=== PATIENT | male | born 1960 | race African-American/Black ===

== ENCOUNTER 2017-04-28 09:39 | Emergency (ER) | payer MEDICAID ==
--- NOTE | 2017-04-28 10:58 | ER Document Report ---
ED General - General Chief Complaint: Cough Stated Complaint: COUGH Time Seen by Provider: 04/28/17 10:53 TRAVEL OUTSIDE OF THE [place] IN LAST 30 DAYS: No - HPI Patient complains to provider of: cough, weakness, fever Notes: Normally healthy man presents with about 3 day history of weakness, fatigue, myalgias and cough. Patient concerned he may have the flu or pneumonia. - Related Data Allergies/Adverse Reactions: No Known Allergies Allergy (Verified 09/18/12 10:48) Past Medical History - Social History Smoking Status: Unknown if Ever Smoked Family History: Reviewed & Not Pertinent - Past Medical History Cardiac Medical History: Denies: Hx Coronary Artery Disease, Hx Heart Attack, Hx Hypertension Pulmonary Medical History: Denies: Hx Asthma, Hx Bronchitis, Hx COPD, Hx Pneumonia Neurological Medical History: Denies: Hx Cerebrovascular Accident, Hx Seizures Musculoskeltal Medical History: Denies Hx Arthritis - Immunizations Hx Diphtheria, Pertussis, Tetanus Vaccination: Yes Review of Systems - Review of Systems Constitutional: Fever, Malaise, Weakness EENT: No symptoms reported Cardiovascular: No symptoms reported Respiratory: Cough Gastrointestinal: No symptoms reported Genitourinary: No symptoms reported Male Genitourinary: No symptoms reported Musculoskeletal: No symptoms reported Skin: No symptoms reported Hematologic/Lymphatic: No symptoms reported Neurological/Psychological: No symptoms reported Physical Exam - Vital signs Vitals: Temp Pulse Resp BP Pulse Ox 98.9 F 59 L 16 121/69 96 04/28/17 09:46 04/28/17 09:46 04/28/17 09:46 04/28/17 09:46 04/28/17 09:46 Interpretation: Normal - General General appearance: Appears well, Alert - HEENT Head: Normocephalic, Atraumatic Eyes: Normal Pupils: PERRL - Respiratory Respiratory status: No respiratory distress Chest status: Nontender Breath sounds: Normal Chest palpation: Normal - Cardiovascular Rhythm: Regular Heart sounds: Normal auscultation Murmur: No - Abdominal Inspection: Normal Distension: No distension Bowel sounds: Normal Tenderness: Nontender Organomegaly: No organomegaly - Back Back: Normal, Nontender - Extremities General upper extremity: Normal inspection, Nontender, Normal color, Normal ROM , Normal temperature General lower extremity: Normal inspection, Nontender, Normal color, Normal ROM , Normal temperature, Normal weight bearing. No: Kelly's sign - Neurological Neuro grossly intact: Yes Cognition: Normal Orientation: AAOx4 Roxana Coma Scale Eye Opening: Spontaneous Nereyda Coma Scale Verbal: Oriented Roxana Coma Scale Motor: Obeys Commands Roxana Coma Scale Total: 15 Speech: Normal Motor strength normal: LUE, RUE, LLE, RLE Sensory: Normal - Psychological Associated symptoms: Normal affect, Normal mood - Skin Skin Temperature: Warm Skin Moisture: Dry Skin Color: Normal Course - Re-evaluation Re-evalutation: 04/28/17 10:57 Well-appearing man in no acute distress stable vital signs within normal limits outside treatment window for possible influenza. Will obtain chest x-ray to rule out pneumonia 04/28/17 11:28 Well-appearing man stable vital signs within normal limits presents with some myalgias and cough for about 3 days. Patient's imaging study shows no pneumonia. I suspicion patient is influenza. We will follow-up PCP. - Vital Signs Vital signs: Temp Pulse Resp BP Pulse Ox 98.9 F 59 L 16 121/69 96 04/28/17 09:46 04/28/17 09:46 04/28/17 09:46 04/28/17 09:46 04/28/17 09:46 Discharge - Discharge Clinical Impression: Influenza Condition: Stable Disposition: HOME, SELF-CARE Instructions: Influenza ([facility]) [id number] Additional Instructions: See your PCP
--- NOTE | 2017-04-28 11:14 | RADIOLOGY REPORT (SQ) ---
EXAM DESCRIPTION: CHEST PA/LAT COMPLETED DATE/TIME: 04/28/2017 11:07 am REASON FOR STUDY: cough COMPARISON: September 2012 EXAM PARAMETERS: NUMBER OF VIEWS: two views TECHNIQUE: Digital Frontal and Lateral radiographic views of the chest acquired. RADIATION DOSE: NA LIMITATIONS: none FINDINGS: LUNGS AND PLEURA: No opacities, masses or pneumothorax. No pleural effusion. MEDIASTINUM AND HILAR STRUCTURES: No masses or contour abnormalities. HEART AND VASCULAR STRUCTURES: Heart normal size. No evidence for failure. BONES: No acute findings. HARDWARE: None in the chest. OTHER: No other significant finding. IMPRESSION: NO SIGNIFICANT RADIOGRAPHIC FINDING IN THE CHEST. TECHNICAL DOCUMENTATION: JOB ID: [id number] [employer] All Rights Reserved
[2017-04-28 11:51] VITALS: BP 123/71
== END 2017-04-28 11:51 | disposition home or self-care (01) ==
LOC: ER 09:39
DX: J11.1 Influenza due to unidentified influenza virus with other respiratory manifestations (principal); R05 Cough; R53.1 Weakness; R50.9 Fever, unspecified; R53.83 Other fatigue; M79.1 Myalgia
CPT/HCPCS: 71046; 99283

== ENCOUNTER 2019-07-04 11:08 | Inpatient (IN) | payer MEDICAID ==
[2019-07-04] MEDS ORDERED: FUROSEMIDE INJ/PF 20 MG/2 ML SDV IV ONE (12:34)
[2019-07-04] MEDS ORDERED: ACETAMINOPHEN 325 MG TABLET PO ONE (12:38)
--- NOTE | 2019-07-04 12:39 | ER Document Report ---
ED General - General Chief Complaint: Shoulder Pain Stated Complaint: SHOULDER PAIN Time Seen by Provider: 07/04/19 11:50 Primary Care Provider: ALBERTO GILMAN MD [Primary Care Provider] - Follow up as needed Mode of Arrival: Ambulatory Information source: Patient Notes: 58-year-old man presents to the emergency department with a complaint of episodic shortness of breath with swelling of the ankles and feet bilaterally. He also notes that he has had a injury to his left shoulder many years ago and his shoulder has been giving him some pain. He denies any recent injury. He also has a pacemaker, denies acute chest pain. TRAVEL OUTSIDE OF THE [place] IN LAST 30 DAYS: No - Related Data Allergies/Adverse Reactions: No Known Allergies Allergy (Verified 09/18/12 10:48) Home Medications: pt is unable to recall medictions, but he states he "takes one med for my heart because I have a pacemaker". Past Medical History - Social History Smoking Status: Never Smoker Family History: Reviewed & Not Pertinent Patient has suicidal ideation: No Patient has homicidal ideation: No - Past Medical History Cardiac Medical History: Denies: Hx Coronary Artery Disease, Hx Heart Attack, Hx Hypertension Pulmonary Medical History: Denies: Hx Asthma, Hx Bronchitis, Hx COPD, Hx Pneumonia Neurological Medical History: Denies: Hx Cerebrovascular Accident, Hx Seizures Renal/ Medical History: Denies: Hx Peritoneal Dialysis Musculoskeletal Medical History: Denies Hx Arthritis - Immunizations Hx Diphtheria, Pertussis, Tetanus Vaccination: Yes Review of Systems - Review of Systems Notes: Constitutional: Negative for fever. HENT: Negative for sore throat. Eyes: Negative for visual changes. Cardiovascular: + Edema, negative for chest pain. Respiratory: + Dyspnea on exertion, shortness of breath, PND Gastrointestinal: Negative for abdominal pain, vomiting or diarrhea. Genitourinary: Negative for dysuria. Musculoskeletal: Negative for back pain. Skin: Negative for rash. Neurological: Negative for headaches, weakness or numbness. 10 point ROS negative except as marked above and in HPI. Physical Exam - Vital signs Vitals: Temp Pulse Resp BP Pulse Ox 97.7 F 72 18 140/75 H 99 07/04/19 11:15 07/04/19 11:15 07/04/19 11:15 07/04/19 11:15 07/04/19 11:15 - Notes Notes: PHYSICAL EXAMINATION: Physical Exam: General: Well-nourished well-developed 58-year-old man respiratory distress. HEENT: NC/AT, pupils equal round and reactive to light, MM moist,nares clear, oropharynx clear, airway patent + JVD Neck: supple, no adenopathy, no masses. Good range of motion Lungs: Tachypnea, no wheezing, no rales no rhonchi CVS: Regular rate and rhythm no murmur gallop or rub Abdomen: Soft, active, nontender, no masses, no hepatosplenomegaly Ext: 2+ pedal edema bilaterally Neuro: Alert and responsive, moving all 4 extremities on command, cranial nerves intact, no focal findings Skin: Intact no open lesions, no rash PSYCH: Normal mood, normal affect. Course - Re-evaluation Re-evalutation: 07/04/19 16:24 Patient denies chest pain, has had worsening dyspnea on exertion, increased swelling in the lower extremities over the past few days. He has a pacemaker, chest x-ray today reveals a market increase in his cardiac silhouette on x-ray compared to previous x-rays. Patient also noted to have JVD. BNP is 9030. He is given Lasix milligrams IV, aspirin 324 mg p.o., and Vasotec 0.625 mg IV. Blood pressure noted to have a diastolic of greater than 100. I discussed with the patient the need for further evaluation, echocardiogram and diuresis. I have contacted Dr. Gilman, he will admit the patient to the hospital [facility] for further evaluation and treatment. - Vital Signs Vital signs: Temp Pulse Resp BP Pulse Ox 97.7 F 72 18 134/103 H 100 07/04/19 11:15 07/04/19 11:15 07/04/19 14:43 07/04/19 14:43 07/04/19 14:43 - Laboratory Result Diagrams: 07/04/19 12:45 07/04/19 12:45 Laboratory results interpreted by me: 07/04/19 07/04/19 07/04/19 12:45 12:45 14:40 MCV 98 H RDW 15.2 H Plt Count 142 L Chloride 109 H Total Bilirubin 2.3 H NT-Pro-B Natriuret Pep Urine Protein 100 H Urine Blood SMALL H 07/04/19 15:00 MCV RDW Plt Count Chloride Total Bilirubin NT-Pro-B Natriuret Pep 9830 H Urine Protein Urine Blood Discharge - Discharge Clinical Impression: Dyspnea on exertion Congestive heart failure Qualifiers: Heart failure type: combined systolic and diastolic Heart failure chronicity: acute Qualified Code(s): I50.41 - Acute combined systolic (congestive) and diastolic (congestive) heart failure Cardiomyopathy Qualifiers: Cardiomyopathy type: unspecified Qualified Code(s): I42.9 - Cardiomyopathy, u nspecified Disposition: ADMITTED INPATIENT Admitting Provider: Hari Unit Admitted: IMCU Referrals: ALBERTO GILMAN MD [Primary Care Provider] - Follow up as needed
[2019-07-04 13:13] LABS: ABSOLUTE BASOPHILS # (AUTO) 0.1 10^3/uL (0.0-0.2); ABSOLUTE LYMPHOCYTES (AUTO) 1.6 10^3/uL (0.5-4.7); ABSOLUTE MONOCYTES (AUTO) 0.4 10^3/uL (0.1-1.4); ABSOLUTE NEUT (AUTO) 2.6 10^3/uL (1.7-8.2); BASOPHILS % (AUTO) 1.5 % (0-2); EOSINOPHILS % (AUTO) 0.5 % (0-6); HEMATOCRIT 45.9 % (37.9-51.0); HEMOGLOBIN 15.3 g/dL (13.5-17.0); LYMPHOCYTES % (AUTO) 34.6 % (13-45); MEAN CORPUSCULAR HEMOGLOBIN 32.7 pg (27.0-33.4); MEAN CORPUSCULAR HGB CONC 33.4 g/dL (32.0-36.0); MEAN CORPUSCULAR VOLUME 98 fl (80-97); MONOCYTES % (AUTO) 7.9 % (3-13); PLATELET COUNT 142 10^3/uL (150-450); RED BLOOD COUNT 4.69 10^6/uL (4.35-5.55); RED CELL DISTRIBUTION WIDTH 15.2 % (11.5-14.0); SEGMENTED NEUTROPHILS % (AUTO) 55.5 % (42-78); TOTAL CELLS COUNTED % (AUTO) 100 %; WHITE BLOOD COUNT 4.7 10^3/uL (4.0-10.5)
[2019-07-04 13:19] LABS: ALBUMIN 3.9 g/dL (3.5-5.0); ALKALINE PHOSPHATASE 84 U/L (38-126); ANION GAP 8 (5-19); ASPARTATE AMINO TRANSFERASE 42 U/L (17-59); BILIRUBIN,DIRECT 0.1 mg/dL (0.0-0.4); BILIRUBIN,TOTAL 2.3 mg/dL (0.2-1.3); BLOOD UREA NITROGEN 16 mg/dL (7-20); CALCIUM 9.6 mg/dL (8.4-10.2); CARBON DIOXIDE 24 mmol/L (22-30); CHLORIDE 109 mmol/L (98-107); CREATINE KINASE 138 U/L (55-170); GLUCOSE 99 mg/dL (75-110); POTASSIUM 4.3 mmol/L (3.6-5.0); TOTAL PROTEIN 6.9 g/dL (6.3-8.2)
--- NOTE | 2019-07-04 13:55 | RADIOLOGY REPORT (SQ) ---
EXAM DESCRIPTION: CHEST 2 VIEWS IMAGES COMPLETED DATE/TIME: 07/04/2019 1:34 pm REASON FOR STUDY: shortness of breath COMPARISON: 04/28/2017 EXAM PARAMETERS: NUMBER OF VIEWS: two views TECHNIQUE: Digital Frontal and Lateral radiographic views of the chest acquired. RADIATION DOSE: NA LIMITATIONS: none FINDINGS: LUNGS AND PLEURA: Very small right pleural effusion and slight right lung base atelectasi s. The left lung is stable in appearance. No pneumothorax. MEDIASTINUM AND HILAR STRUCTURES: No masses or contour abnormalities. HEART AND VASCULAR STRUCTURES: Marked generalized cardiomegaly, new finding since the prior study. No evidence for failure. BONES: The osseous structures are stable in appearance. No acute findings. HARDWARE: Interval placement of left-sided cardiac pacemaker/defibrillator. OTHER: No other significant finding. IMPRESSION: 1. Since the prior study dated 04/28/2017, marked increase in heart size. Marked cardio megaly. Further evaluation with ECHO may be helpful. 2. Very small right pleural effusion and slight atelectasis at the right lung base. TECHNICAL DOCUMENTATION: JOB ID: [id number] [employer]- All Rights Reserved Reading location - IP/workstation name: [email or web address]
[2019-07-04 15:05] LABS: APPEARANCE,URINE CLEAR; BILIRUBIN,URINE NEGATIVE (NEGATIVE); COLOR,URINE YELLOW; GLUCOSE, URINE NEGATIVE (NEGATIVE); KETONES,URINE NEGATIVE (NEGATIVE); PROTEIN,URINE 100 mg/dL (NEGATIVE); URINE SPECIFIC GRAVITY 1.013; UROBILINOGEN,URINE NEGATIVE mg/dL (<2.0)
[2019-07-04 15:41] LABS: CREATINE KINASE MB 3.09 ng/mL (<4.55)
[2019-07-04 15:48] LABS: TROPONIN I 0.038 ng/mL
[2019-07-04] MEDS ORDERED: ENALAPRILAT DIHYDRATE INJ/PF 1.25 MG/1 ML SDV IV ONE (16:17)
[2019-07-04] MEDS ORDERED: ASPIRIN 81 MG TABLET, CHEWABLE PO ONE (16:17)
[2019-07-04] MEDS: ENOXAPARIN SODIUM INJ 40 MG/0.4 ML DISP.SYRIN SUBCUT SCH (17:57)
[2019-07-04] MEDS: CARVEDILOL 3.125 MG TABLET PO SCH (18:05)
[2019-07-04 18:13] LABS: INTERNATIONAL RATION (INR) 1.13; PARTIAL THROMBOPLASTIN TIME 30.7 SEC (23.5-35.8); PROTHROMBIN TIME 14.6 SEC (11.4-15.4)
[2019-07-04 18:17] LABS: ARTERIAL BLOOD FIO2 2L; ARTERIAL BLOOD H2CO3 0.95 mmol/L (1.05-1.35); ARTERIAL BLOOD O2 SATURATION 98.7 % (94-98); ARTERIAL BLOOD PCO2 31.7 mmHg (35-45); ARTERIAL BLOOD PH 7.44 (7.35-7.45); ARTERIAL BLOOD PO2 128.5 mmHg (80-100)
[2019-07-04] MEDS ORDERED: NORMAL SALINE 250 ML with FUROSEMIDE 250 MG IV PRN ×2 (18:30)
[2019-07-04 18:34] LABS: CREATINE KINASE MB 3.2 ng/mL (<4.55)
[2019-07-04 18:38] LABS: FREE T4 (FREE THYROXINE) 2.14 ng/dL (0.78-2.19); TROPONIN I 0.036 ng/mL
--- NOTE | 2019-07-04 18:46 | EKG REPORT ---
SEVERITY:- ABNORMAL ECG - VENTRICULAR-PACED COMPLEXES : Confirmed by: Quin Lira 04-Jul-2019 18:45:54
[2019-07-04 18:52] LABS: THYROID STIMULATING HORMONE 2.64 uIU/mL (0.47-4.68)
[2019-07-05 00:07] LABS: CREATINE KINASE MB 3.77 ng/mL (<4.55); TROPONIN I 0.038 ng/mL
[2019-07-05] MEDS: CARVEDILOL 3.125 MG TABLET PO SCH ×2 (05:13→17:29)
[2019-07-05 05:41] LABS: HEMOGLOBIN 15.4 g/dL (13.5-17.0); MEAN CORPUSCULAR HEMOGLOBIN 33.1 pg (27.0-33.4); MEAN CORPUSCULAR HGB CONC 34.2 g/dL (32.0-36.0); MEAN CORPUSCULAR VOLUME 97 fl (80-97); PLATELET COUNT 133 10^3/uL (150-450); RED BLOOD COUNT 4.66 10^6/uL (4.35-5.55); RED CELL DISTRIBUTION WIDTH 14.7 % (11.5-14.0); WHITE BLOOD COUNT 4.4 10^3/uL (4.0-10.5)
[2019-07-05 06:03] LABS: ABSOLUTE LYMPHOCYTES# (MANUAL) 1.5 10^3/uL (0.5-4.7); ABSOLUTE MONOCYTES # (MANUAL) 0.3 10^3/uL (0.1-1.4); ALBUMIN 3.6 g/dL (3.5-5.0); ALKALINE PHOSPHATASE 81 U/L (38-126); ANION GAP 8 (5-19); ASPARTATE AMINO TRANSFERASE 41 U/L (17-59); BASOPHILS % (MANUAL) 0 % (0-2); BILIRUBIN,DIRECT 0.2 mg/dL (0.0-0.4); BILIRUBIN,TOTAL 2.4 mg/dL (0.2-1.3); BLOOD UREA NITROGEN 17 mg/dL (7-20); CALCIUM 9.4 mg/dL (8.4-10.2); CARBON DIOXIDE 27 mmol/L (22-30); CHLORIDE 103 mmol/L (98-107); CHOLESTEROL 202.12 mg/dL (0-200); CREATINE KINASE 135 U/L (55-170); EOSINOPHILS % (MANUAL) 2 % (0-6); GLUCOSE 88 mg/dL (75-110); LYMPHOCYTES % (MANUAL) 34 % (13-45); MONOCYTES % (MANUAL) 7 % (3-13); NUCLEATED RED BLOOD CELLS 1 /100 WBC (0); POTASSIUM 3.7 mmol/L (3.6-5.0); SEGMENTED NEUTROPHILS % (MAN) 57 % (42-78); TOTAL CELLS COUNTED 100; TOTAL PROTEIN 6.5 g/dL (6.3-8.2); TRIGLYCERIDES 100 mg/dL (<150)
[2019-07-05 06:04] LABS: ANISOCYTOSIS SLIGHT; BURR CELLS 1+; PLATELET COMMENT DECREASED; POIKILOCYTOSIS 1+; TEAR DROP CELLS SLIGHT
[2019-07-05 06:15] LABS: DIRECT LDL 145 mg/dL (<100)
[2019-07-05 06:21] LABS: CREATINE KINASE MB 3.89 ng/mL (<4.55); TROPONIN I 0.041 ng/mL
[2019-07-05] MEDS: ENOXAPARIN SODIUM INJ 40 MG/0.4 ML DISP.SYRIN SUBCUT SCH (09:46)
--- NOTE | 2019-07-05 10:02 | EKG REPORT ---
SEVERITY:- ABNORMAL ECG - A-V DUAL-PACED RHYTHM WITH SOME INHIBITION : Confirmed by: Quin Lira 05-Jul-2019 10:02:15
--- NOTE | 2019-07-05 19:36 | PDOC H&P ---
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 He was evaluated in the ER and found to be in CHF. Chest x- ray ,the BNP clinical picture consistent with CHF, hospital admission was advised. Past Medical History Cardiac Medical History: Reports: Other - Nonischemic cardiomyopathy Neurological Medical History: Denies: Seizures Musculoskeltal Medical History: Denies: Arthritis Hematology: Denies: Anemia Social History Smoking Status: Never Smoker Electronic Cigarette use?: No Frequency of Alcohol Use: None Hx Recreational Drug Use: No Drugs: None Hx Prescription Drug Abuse: No Family History Family History: Reviewed & Not Pertinent Parental Family History Reviewed: Yes Children Family History Reviewed: Yes Sibling(s) Family History Reviewed.: Yes Medication/Allergy Home Medications: Carvedilol [Coreg 3.125 mg Tablet] 3.125 mg PO Q12 07/04/19 Lisinopril [Prinivil 5 mg Tablet] 5 mg PO DAILY 07/04/19 Allergies/Adverse Reactions: No Known Allergies Allergy (Verified 09/18/12 10:48) Review of Systems Constitutional: ABSENT: chills, fever(s), headache(s), weight gain, weight loss Eyes: ABSENT: visual disturbances Ears: ABSENT: hearing changes Cardiovascular: PRESENT: dyspnea on exertion, edema Respiratory: ABSENT: cough, hemoptysis Gastrointestinal: ABSENT: abdominal pain, constipation, diarrhea, hematemesis, hematochezia, nausea, vomiting Genitourinary: ABSENT: dysuria, hematuria Musculoskeletal: ABSENT: joint swelling Integumentary: ABSENT: rash, wounds Neurological: ABSENT: abnormal gait, abnormal speech, confusion, dizziness, focal weakness, syncope Psychiatric: ABSENT: anxiety, depression, homidical ideation, suicidal ideation Endocrine: ABSENT: cold intolerance, heat intolerance, menstrual abnormalities, polydipsia, polyuria Hematologic/Lymphatic: ABSENT: easy bleeding, easy bruising, lymphadenopathy Physical Exam Vital Signs: Temp Pulse Resp BP Pulse Ox 97.3 F 59 L 18 116/83 100 07/05/19 16:31 07/05/19 16:31 07/05/19 16:31 07/05/19 16:31 07/05/19 16:31 Intake & Output 07/04/19 07/05/19 07/06/19 06:59 06:59 06:59 Intake Total 136 720 Output Total 1350 350 Balance -1214 370 Weight 60.5 kg General appearance: PRESENT: mild distress Head exam: PRESENT: atraumatic, normocephalic Eye exam: PRESENT: conjunctiva pink, EOMI, PERRLA Ear exam: PRESENT: normal external ear exam Mouth exam: PRESENT: moist, tongue midline Neck exam: PRESENT: full ROM. ABSENT: carotid bruit, JVD, lymphadenopathy, thyromegaly Respiratory exam: PRESENT: crackles, rales Cardiovascular exam: PRESENT: RRR, +S1, +S2 Vascular exam: PRESENT: normal capillary refill GI/Abdominal exam: PRESENT: normal bowel sounds, soft Rectal exam: PRESENT: deferred Extremities exam: PRESENT: pedal edema Neurological exam: PRESENT: alert, awake, oriented to person, oriented to place, oriented to time, oriented to situation, CN II-XII grossly intact Psychiatric exam: PRESENT: appropriate affect, normal mood Skin exam: PRESENT: dry, intact, warm Results Laboratory Results: 07/05/19 05:22 07/05/19 05:22 07/05/19 07/05/19 05:22 05:22 WBC 4.4 RBC 4.66 Hgb 15.4 Hct 45.0 MCV 97 MCH 33.1 MCHC 34.2 RDW 14.7 H Plt Count 133 L Seg Neutrophils % Not Reportable Sodium 137.9 Potassium 3.7 Chloride 103 Carbon Dioxide 27 Anion Gap 8 BUN 17 Creatinine 0.81 Est GFR ( Amer) > 60 Glucose 88 Calcium 9.4 Total Bilirubin 2.4 H AST 41 Alkaline Phosphatase 81 Total Protein 6.5 Albumin 3.6 Triglycerides 100 Cholesterol 202.12 H LDL Cholesterol Direct 145 H VLDL Cholesterol 20.0 HDL Cholesterol 48 07/04/19 07/04/19 07/04/19 12:45 12:45 15:00 Creatine Kinase 138 CK-MB (CK-2) Cancelled 3.09 Troponin I Cancelled 0.038 NT-Pro-B Natriuret Pep Cancelled 9830 H 07/04/19 07/04/19 07/04/19 17:45 17:45 23:28 Creatine Kinase 143 160 CK-MB (CK-2) 3.20 Troponin I 0.036 NT-Pro-B Natriuret Pep 07/04/19 07/05/19 07/05/19 23:28 05:22 05:22 Creatine Kinase 135 CK-MB (CK-2) 3.77 3.89 Troponin I 0.038 0.041 NT-Pro-B Natriuret Pep Impressions: Chest X-Ray 07/04/19 12:31 IMPRESSION: 1. Since the prior study dated 04/28/2017, marked increase in heart size. Marked cardiomegaly. Further evaluation with ECHO may be helpful. 2. Very small right pleural effusion and slight atelectasis at the right lung base. Assessment & Plan - Diagnosis (1) Acute systolic heart failure Is this a current diagnosis for this admission?: Yes Plan: Patient is admitted, start furosemide infusion, Entresto, continue beta-geraldine, order 2D echo (2) Presence of cardiac pacemaker Is this a current diagnosis for this admission?: Yes (3) Ischemic cardiomyopathy Is this a current diagnosis for this admission?: Yes
--- NOTE | 2019-07-05 19:40 | PDOC PROGRESS REPORT ---
Subjective Progress Note for:: 07/05/19 Subjective:: Patient was admitted yesterday for the management of acute systolic heart failure, 2D echo was done today. Patient is very diuresed Reason For Visit: ACUTE SYSTOLIC HEART FAILURE,H/O NON-ISCHEMIC CARD Physical Exam Vital Signs: Temp Pulse Resp BP Pulse Ox 97.3 F 59 L 18 116/83 100 07/05/19 16:31 07/05/19 16:31 07/05/19 16:31 07/05/19 16:31 07/05/19 16:31 Intake & Output 07/04/19 07/05/19 07/06/19 06:59 06:59 06:59 Intake Total 136 720 Output Total 1350 350 Balance -1214 370 Weight 60.5 kg General appearance: PRESENT: no acute distress Eye exam: PRESENT: PERRLA Respiratory exam: PRESENT: clear to auscultation brady Cardiovascular exam: PRESENT: +S1, +S2 Neurological exam: PRESENT: alert Results Laboratory Results: 07/05/19 05:22 07/05/19 05:22 07/05/19 07/05/19 05:22 05:22 WBC 4.4 RBC 4.66 Hgb 15.4 Hct 45.0 MCV 97 MCH 33.1 MCHC 34.2 RDW 14.7 H Plt Count 133 L Seg Neutrophils % Not Reportable Sodium 137.9 Potassium 3.7 Chloride 103 Carbon Dioxide 27 Anion Gap 8 BUN 17 Creatinine 0.81 Est GFR ( Amer) > 60 Glucose 88 Calcium 9.4 Total Bilirubin 2.4 H AST 41 Alkaline Phosphatase 81 Total Protein 6.5 Albumin 3.6 Triglycerides 100 Cholesterol 202.12 H LDL Cholesterol Direct 145 H VLDL Cholesterol 20.0 HDL Cholesterol 48 07/04/19 07/04/19 07/04/19 12:45 12:45 15:00 Creatine Kinase 138 CK-MB (CK-2) Cancelled 3.09 Troponin I Cancelled 0.038 NT-Pro-B Natriuret Pep Cancelled 9830 H 07/04/19 07/04/19 07/04/19 17:45 17:45 23:28 Creatine Kinase 143 160 CK-MB (CK-2) 3.20 Troponin I 0.036 NT-Pro-B Natriuret Pep 07/04/19 07/05/19 07/05/19 23:28 05:22 05:22 Creatine Kinase 135 CK-MB (CK-2) 3.77 3.89 Troponin I 0.038 0.041 NT-Pro-B Natriuret Pep Impressions: Chest X-Ray 07/04/19 12:31 IMPRESSION: 1. Since the prior study dated 04/28/2017, marked increase in heart size. Marked cardiomegaly. Further evaluation with ECHO may be helpful. 2. Very small right pleural effusion and slight atelectasis at the right lung base. Assessment & Plan - Diagnosis (1) Acute systolic heart failure Is this a current diagnosis for this admission?: Yes Plan: Increase Coreg to 12.5 mg p.o. twice daily, increase Entresto dose (2) Presence of cardiac pacemaker Is this a current diagnosis for this admission?: Yes (3) Ischemic cardiomyopathy Is this a current diagnosis for this admission?: Yes - Time Time Spent with patient: 35 or more minutes Level of Care: IMCU Medications reviewed and adjusted accordingly: Yes
[2019-07-05] MEDS: SACUBITRIL/VALSARTAN 49 MG/51 MG TABLET PO SCH (21:05)
[2019-07-05] MEDS: CARVEDILOL 12.5 MG TABLET PO SCH ×2 (21:11→21:15)
--- NOTE | 2019-07-05 21:33 | XCELERA REPORT ---
[address] [address] Transthoracic Echocardiogram Report Name: MEHRDAD LANDON Age: 58 yrs Gender: Male : 1960 Patient Status: Inpatient Patient Location: [address] [place], [place] [id number] Study Date: 07/04/2019 07:20 PM Height: 65 in Weight: 142 lb BSA: 1.7 m2 Procedure: A two-dimensional transthoracic echocardiogram with color flow and Doppler was performed. Study Quality: Good. Reason For Study: CHF History: CHF. Ordering Physician: ALBERTO GILMAN Performed By: Mulu Cantu Interpretation Summary The left ventricle is moderately to severly dilated. There is normal left ventricular wall thickness. LV EF is Less than 20% Doppler measurements suggest impaired left ventricular relaxation, which is associated with grade I/IV or mild diastolic dysfunction : By tissue doppler No ASD,VSD , or PFO seen The right ventricle is moderate to severely dilated. The right ventricular systolic function is severely reduced. The right atrium is moderate to severely dilated. There is no evidence of mitral valve prolapse. There is no vegetation seen on the mitral valve. There is no mitral valve stenosis. There is a moderate amount of mitral regurgitation There is no aortic valvular vegetation. There is no aortic valve stenosis There is aortic sclerosis without aortic stenosis. There is no LVOT obstruction. There is a trace amount of aortic regurgitation There is no tricuspid stenosis. There is a severe amount of tricuspid regurgitation There is undersampling of TR jet and hence erroneouly low RVSP of at least 30 mm of Hg.Re-interogate TR jet. The aortic root is normal size. The inferior vena cava appeared dilated and did not change with respiration (RAP > 20 mmHg) Very small right sided pericardiaaal effusion seen. There are no echocardiographic or Doppler indications for cardiac tamponade MMode/2D Measurements & Calculations RVDd: 3.7 cm LVIDd: 6.0 cm FS: 10.8 % Ao root diam: 3.0 cm IVSd: 1.2 cm LVIDs: 5.4 cm EDV(Teich): 180.1 ml Ao root area: 6.9 cm2 LVPWd: 1.0 cm ESV(Teich): 138.5 ml LA dimension: 6.6 cm EF(Teich): 23.1 % Doppler Measurements & Calculations MV E max luis fernando: MV P1/2t max luis fernando: Ao V2 max: LV V1 max P.7 cm/sec 92.8 cm/sec 109.1 cm/sec 2.5 mmHg MV A max luis fernando: MV P1/2t: 66.4 msec Ao max PG: LV V1 max: 24.7 cm/sec MVA(P1/2t): 3.3 cm2 4.8 mmHg 79.0 cm/sec MV E/A: 4.5 MV dec slope: 409.5 cm/sec2 MV dec time: 0.13 sec PA V2 max: PI end-d luis fernando: TR max luis fernando: MV P1/2t-pr_phl: 43.3 cm/sec 149.7 cm/sec 160.0 cm/sec 66.4 msec PA max PG: TR max P.75 mmHg 10.2 mmHg Left Ventricle The left ventricle is moderately to severly dilated. There is normal left ventricular wall thickness. LV EF is Less than 20%. Left ventricular systolic function is severely reduced. Doppler measurements suggest impaired left ventricular relaxation, which is associated with grade I/IV or mild diastolic dysfunction. : By tissue doppler. There is severe global hypokinesis of the left ventricle. Apical wall motion abnormality may reflect pacemaker activation. There is no thrombus. No ASD,VSD , or PFO seen. Right Ventricle The right ventricle is moderate to severely dilated. The right ventricular systolic function is severely reduced. Atria The right atrium is moderate to severely dilated. The left atrium is severely dilated. Mitral Valve There is mild mitral leaflet calcification. There is no evidence of mitral valve prolapse. There is no vegetation seen on the mitral valve. There is no mitral valve stenosis. There is a moderate amount of mitral regurgitation. Aortic Valve There is no aortic valvular vegetation. There is no aortic valve stenosis. There is aortic sclerosis without aortic stenosis. There is no LVOT obstruction. There is a trace amount of aortic regurgitation. Tricuspid Valve There is no tricuspid stenosis. There is a severe amount of tricuspid regurgitation. There is undersampling of TR jet and hence erroneouly low RVSP of at least 30 mm of Hg.Re-interogate TR jet. Pulmonic Valve There is no pulmonic valvular stenosis. There is a trace amount of pulmonic regurgitation. Great Vessels The aortic root is normal size. The inferior vena cava appeared dilated and did not change with respiration (RAP > 20 mmHg). Effusions Very small right sided pericardiaaal effusion seen. There are no echocardiographic or Doppler indications for cardiac tamponade. : ALBERTO GILMAN Lakshmi
[2019-07-06 05:27] LABS: HEMATOCRIT 44.3 % (37.9-51.0); HEMOGLOBIN 15.4 g/dL (13.5-17.0); MEAN CORPUSCULAR HEMOGLOBIN 33.1 pg (27.0-33.4); MEAN CORPUSCULAR HGB CONC 34.8 g/dL (32.0-36.0); MEAN CORPUSCULAR VOLUME 95 fl (80-97); PLATELET COUNT 137 10^3/uL (150-450); RED BLOOD COUNT 4.66 10^6/uL (4.35-5.55); RED CELL DISTRIBUTION WIDTH 14.2 % (11.5-14.0); WHITE BLOOD COUNT 4.3 10^3/uL (4.0-10.5)
[2019-07-06] MEDS ORDERED: SACUBITRIL/VALSARTAN 24 MG/26 MG TABLET PO SCH (06:00)
[2019-07-06 06:43] LABS: ABSOLUTE LYMPHOCYTES# (MANUAL) 1.8 10^3/uL (0.5-4.7); ABSOLUTE MONOCYTES # (MANUAL) 0.4 10^3/uL (0.1-1.4); BASOPHILS % (MANUAL) 1 % (0-2); EOSINOPHILS % (MANUAL) 0 % (0-6); LYMPHOCYTES % (MANUAL) 40 % (13-45); MONOCYTES % (MANUAL) 9 % (3-13); SEGMENTED NEUTROPHILS % (MAN) 47 % (42-78); TOTAL CELLS COUNTED 100
[2019-07-06 06:44] LABS: ANISOCYTOSIS SLIGHT; TOXIC VACUOLATION PRESENT
[2019-07-06 06:45] LABS: BURR CELLS SLIGHT; OVALOCYTES SLIGHT; PLATELET COMMENT DECREASED
[2019-07-06] MEDS: ENOXAPARIN SODIUM INJ 40 MG/0.4 ML DISP.SYRIN SUBCUT SCH (09:08)
[2019-07-06] MEDS: CARVEDILOL 12.5 MG TABLET PO SCH (09:13)
[2019-07-06] MEDS: SACUBITRIL/VALSARTAN 49 MG/51 MG TABLET PO SCH ×2 (09:13→17:03)
[2019-07-06 16:45] VITALS: BP 112/79
[2019-07-06] MEDS ORDERED: PHARMACY COMMUNICATION ORDER MC SCH (18:00)
--- NOTE | 2019-07-06 18:52 | PDOC DISCHARGE SUMMARY ---
Impression - Admit/DC Date/PCP Admission Date/Primary Care Provider: 07/04/19 16:56 ALBERTO GILMAN MD Discharge Date: 07/06/19 - Discharge Diagnosis (1) Acute systolic heart failure Is this a current diagnosis for this admission?: Yes (2) Presence of cardiac pacemaker Is this a current diagnosis for this admission?: Yes (3) Ischemic cardiomyopathy Is this a current diagnosis for this admission?: Yes - Additional Information Discharge Diet: Cardiac Discharge Activity: Activity As Tolerated, Balance Activity w/Rest, Weigh Daily Referrals: ALBERTO GILMAN MD [Primary Care Provider] - 07/10/19 2:00 pm Prescriptions: Spironolactone [Aldactone 25 mg Tablet] 25 mg PO DAILY #90 tablet Carvedilol [Coreg 12.5 mg Tablet] 12.5 mg PO Q12 #60 tablet Sacubitril/Valsartan [Entresto 49 mg/51 mg Tablet] 1 tab PO BID #60 tablet Home Medications: Carvedilol [Coreg 12.5 mg Tablet] 12.5 mg PO Q12 #60 tablet 07/06/19 Enoxaparin Sodium [Lovenox Inj 40 mg/0.4 ml Disp.syrin] 40 mg SUBCUT DAILY disp.syrin 07/06/19 Normal Saline [Saline Flush 2.5 ml Monoject Prefil Syrin] 2.5 ml IV Q8A disp.syrin 07/06/19 Sacubitril/Valsartan [Entresto 49 mg/51 mg Tablet] 1 tab PO BID #60 tablet 07/06/19 Spironolactone [Aldactone 25 mg Tablet] 25 mg PO DAILY #90 tablet 07/06/19 History of Present Illiness History of Present Illness: MEHRDAD LANDON is a 58 year old male, He has a history of nonischemic dilated cardiomyopathy, 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 He was evaluated in the ER and found to be in CHF. Chest x- ray ,the BNP clinical picture consistent with CHF, hospital admission was advised. Hospital Course Hospital Course: Patient was admitted for the management of acute systolic heart failure, he was treated with intravenous furosemide infusion, on this admission he was started on Entresto, the Coreg dose was escalated from 6.25-12.5 on discharge, he was on Coreg and lisinopril before this admission, patient is known to have ischemic cardiomyopathy, dilated history of third-degree AV block status post pacemaker implantation. A 2D echo was done 2D echo demonstrated ejection fraction of left ventricle less than 20%, patient follows with Dr. 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.Symptomatically patient improved Physical Exam Vital Signs: Temp Pulse Resp BP Pulse Ox 97.6 F 71 18 149/94 H 94 07/06/19 16:34 07/06/19 16:34 07/06/19 16:34 07/06/19 16:34 07/06/19 16:34 Intake & Output 07/05/19 07/06/19 07/07/19 06:59 06:59 06:59 Intake Total 136 720 Output Total 1350 1400 Balance -1214 -680 Weight 60.5 kg 58.1 kg 58.1 kg General appearance: PRESENT: no acute distress Eye exam: PRESENT: PERRLA Respiratory exam: PRESENT: clear to auscultation brady Cardiovascular exam: PRESENT: +S1, +S2 GI/Abdominal exam: PRESENT: soft Neurological exam: PRESENT: alert Results Laboratory Results: WBC 4.3 10^3/uL (4.0-10.5) 07/06/19 05:06 RBC 4.66 10^6/uL (4.35-5.55) 07/06/19 05:06 Hgb 15.4 g/dL (13.5-17.0) 07/06/19 05:06 Hct 44.3 % (37.9-51.0) 07/06/19 05:06 MCV 95 fl (80-97) 07/06/19 05:06 MCH 33.1 pg (27.0-33.4) 07/06/19 05:06 MCHC 34.8 g/dL (32.0-36.0) 07/06/19 05:06 RDW 14.2 % (11.5-14.0) H 07/06/19 05:06 Plt Count 137 10^3/uL (150-450) L 07/06/19 05:06 Lymph % (Auto) Not Reportable 07/06/19 05:06 [place] % (Auto) Not Reportable 07/06/19 05:06 Eos % (Auto) Not Reportable 07/06/19 05:06 Baso % (Auto) Not Reportable 07/06/19 05:06 Absolute Neuts (auto) Not Reportable 07/06/19 05:06 Absolute Lymphs (auto) Not Reportable 07/06/19 05:06 Absolute Monos (auto) Not Reportable 07/06/19 05:06 Absolute Eos (auto) Not Reportable 07/06/19 05:06 Absolute Basos (auto) Not Reportable 07/06/19 05:06 Total Counted 100 07/06/19 05:06 Seg Neutrophils % Not Reportable 07/06/19 05:06 Seg Neuts % (Manual) 47 % (42-78) 07/06/19 05:06 Lymphocytes % (Manual) 40 % (13-45) 07/06/19 05:06 Atypical Lymphs % 3 % (0) 07/06/19 05:06 Monocytes % (Manual) 9 % (3-13) 07/06/19 05:06 Eosinophils % (Manual) 0 % (0-6) 07/06/19 05:06 Basophils % (Manual) 1 % (0-2) 07/06/19 05:06 Abs Neuts (Manual) 2.0 10^3/uL (1.7-8.2) 07/06/19 05:06 Abs Lymphs (Manual) 1.8 10^3/uL (0.5-4.7) 07/06/19 05:06 Abs Monocytes (Manual) 0.4 10^3/uL (0.1-1.4) 07/06/19 05:06 Absolute Eos (Manual) 0.0 10^3/uL (0.0-0.6) 07/06/19 05:06 Abs Basophils (Manual) 0.0 10^3/uL (0.0-0.2) 07/06/19 05:06 Nucleated RBCs 1 /100 WBC (0) 07/05/19 05:22 Toxic Vacuolation PRESENT 07/06/19 05:06 Platelet Comment DECREASED 07/06/19 05:06 Poikilocytosis 1+ 07/05/19 05:22 Anisocytosis SLIGHT 07/06/19 05:06 Tear Drop Cells SLIGHT 07/05/19 05:22 Ovalocytes SLIGHT 07/06/19 05:06 Marc Cells SLIGHT 07/06/19 05:06 PT 14.6 SEC (11.4-15.4) 07/04/19 17:45 INR 1.13 07/04/19 17:45 APTT 30.7 SEC (23.5-35.8) 07/04/19 17:45 Carbonic Acid 0.95 mmol/L (1.05-1.35) L 07/04/19 17:45 HCO3/H2CO3 Ratio 22:1 07/04/19 17:45 ABG pH 7.44 (7.35-7.45) 07/04/19 17:45 ABG pCO2 31.7 mmHg (35-45) L 07/04/19 17:45 ABG pO2 128.5 mmHg (80-100) H 07/04/19 17:45 ABG HCO3 21.0 mmol/L (20-24) 07/04/19 17:45 ABG Total CO2 22.0 mmol/L (23-27) L 07/04/19 17:45 ABG O2 Saturation 98.7 % (94-98) H 07/04/19 17:45 ABG Base Excess -2.0 mmol/L 07/04/19 17:45 FiO2 2L 07/04/19 17:45 Sodium 137.9 mmol/L (137-145) 07/05/19 05:22 Potassium 3.7 mmol/L (3.6-5.0) 07/05/19 05:22 Chloride 103 mmol/L (98-107) 07/05/19 05:22 Carbon Dioxide 27 mmol/L (22-30) 07/05/19 05:22 Anion Gap 8 (5-19) 07/05/19 05:22 BUN 17 mg/dL (7-20) 07/05/19 05:22 Creatinine 0.81 mg/dL (0.52-1.25) 07/05/19 05:22 Est GFR ( Amer) > 60 (>60) 07/05/19 05:22 Est GFR (MDRD) Non-Af > 60 (>60) 07/05/19 05:22 Glucose 88 mg/dL (75-110) 07/05/19 05:22 Hemoglobin A1c % 5.5 % (4.7-6.0) 07/05/19 05:22 Calcium 9.4 mg/dL (8.4-10.2) 07/05/19 05:22 Magnesium 1.9 mg/dL (1.6-2.3) 07/04/19 17:45 Total Bilirubin 2.4 mg/dL (0.2-1.3) H 07/05/19 05:22 Direct Bilirubin 0.2 mg/dL (0.0-0.4) 07/05/19 05:22 Neonat Total Bilirubin Not Reportable 07/05/19 05:22 Neonat Direct Bilirubin Not Reportable 07/05/19 05:22 Neonat Indirect Bili Not Reportable 07/05/19 05:22 AST 41 U/L (17-59) 07/05/19 05:22 ALT 22 U/L (<50) 07/05/19 05:22 Alkaline Phosphatase 81 U/L (38-126) 07/05/19 05:22 Creatine Kinase 135 U/L (55-170) 07/05/19 05:22 CK-MB (CK-2) 3.89 ng/mL (<4.55) 07/05/19 05:22 Troponin I 0.041 ng/mL 07/05/19 05:22 NT-Pro-B Natriuret Pep 9830 pg/mL (<125) H 07/04/19 15:00 Total Protein 6.5 g/dL (6.3-8.2) 07/05/19 05:22 Albumin 3.6 g/dL (3.5-5.0) 07/05/19 05:22 Triglycerides 100 mg/dL (<150) 07/05/19 05:22 Cholesterol 202.12 mg/dL (0-200) H 07/05/19 05:22 LDL Cholesterol Direct 145 mg/dL (<100) H 07/05/19 05:22 VLDL Cholesterol 20.0 mg/dL (10-31) 07/05/19 05:22 HDL Cholesterol 48 mg/dL (>40) 07/05/19 05:22 TSH 2.64 uIU/mL (0.47-4.68) 07/04/19 17:45 Free T4 2.14 ng/dL (0.78-2.19) 07/04/19 17:45 Urine Color YELLOW 07/04/19 14:40 Urine Appearance CLEAR 07/04/19 14:40 Urine pH 5.0 (5.0-9.0) 07/04/19 14:40 Ur Specific [place] 1.013 07/04/19 14:40 Urine Protein 100 mg/dL (NEGATIVE) H 07/04/19 14:40 Urine Glucose (UA) NEGATIVE mg/dL (NEGATIVE) 07/04/19 14:40 Urine Ketones NEGATIVE mg/dL (NEGATIVE) 07/04/19 14:40 Urine Blood SMALL (NEGATIVE) H 07/04/19 14:40 Urine Nitrite (Reflex) NEGATIVE (NEGATIVE) 07/04/19 14:40 Urine Bilirubin NEGATIVE (NEGATIVE) 07/04/19 14:40 Urine Urobilinogen NEGATIVE mg/dL (<2.0) 07/04/19 14:40 Leukocyte Esterase Rfl NEGATIVE (NEGATIVE) 07/04/19 14:40 Urine RBC (Auto) 1 /HPF 07/04/19 14:40 U Hyaline Cast (Auto) 10 /LPF 07/04/19 14:40 Urine WBC (Reflex) 1 /HPF 07/04/19 14:40 Squamous Epi Cells Auto <1 /HPF 07/04/19 14:40 Urine Mucus (Auto) FEW /LPF 07/04/19 14:40 Urine Ascorbic Acid NEGATIVE (NEGATIVE) 07/04/19 14:40 07/04/19 07/04/19 07/04/19 12:45 15:00 17:45 CK-MB (CK-2) Cancelled 3.09 3.20 Troponin I Cancelled 0.038 0.036 NT-Pro-B Natriuret Pep Cancelled 9830 H 07/04/19 07/05/19 23:28 05:22 CK-MB (CK-2) 3.77 3.89 Troponin I 0.038 0.041 NT-Pro-B Natriuret Pep Impressions: Chest X-Ray 07/04/19 12:31 IMPRESSION: 1. Since the prior study dated 04/28/2017, marked increase in heart size. Marked cardiomegaly. Further evaluation with ECHO may be helpful. 2. Very small right pleural effusion and slight atelectasis at the right lung base. Stroke Is this a Stroke Patient?: No Acute Heart Failure - Is this a Heart Failure Patient?: No
== END 2019-07-06 17:35 | disposition home or self-care (01) | DRG 292 ==
LOC: ER 11:08 → EH 16:56 → 3S 18:25 → 3W 19:08
PROVIDERS: ADMIT Internal Medicine; ATTEND Internal Medicine
DX: I50.23 Acute on chronic systolic (congestive) heart failure (principal); I44.2 Atrioventricular block, complete; I25.5 Ischemic cardiomyopathy; Z95.0 Presence of cardiac pacemaker; Z79.899 Other long term (current) drug therapy
CPT/HCPCS: 36415; 71046; 80048; 80053; 80061; 80076; 81001; 82550; 82553; 82803; 83036; 83735; 83880; 84439; 84443; 84484; 85025; 85610; 85730; 87086; 93005; 93010; 93306; 99285; J1940; J3490; J7050

== ENCOUNTER 2019-11-18 17:50 | Inpatient (IN) | payer MEDICAID ==
--- NOTE | 2019-11-18 18:38 | ER Document Report ---
ED Medical Screen (RME) - General Chief Complaint: Shortness Of Breath Stated Complaint: SHORT OF BREATH,ABDOMINAL PAIN Time Seen by Provider: 11/18/19 18:32 Primary Care Provider: ALBERTO GILMAN MD [Primary Care Provider] - Follow up as needed TRAVEL OUTSIDE OF THE [place] IN LAST 30 DAYS: No - HPI Notes: 11/18/19 18:35 I performed a brief medical screening exam on the patient determined that the patient needs further evaluation and management by main side provider. I have placed initial orders to help expedite care. 58-year-old male to the emergency department with complaints of cough, shortness of breath, right shoulder pain, abdominal pain for the past day. Denies any fevers or chills. Uncertain that he has been in contact with anyone with COVID- 19. He denies any sore throat. He has a history of congestive heart failure and hypertension. - Related Data Allergies/Adverse Reactions: No Known Allergies Allergy (Verified 09/18/12 10:48) Past Medical History - Past Medical History Cardiac Medical History: Denies: Hx Coronary Artery Disease, Hx Heart Attack, Hx Hypertension Pulmonary Medical History: Denies: Hx Asthma, Hx Bronchitis, Hx COPD, Hx Pneumonia Neurological Medical History: Denies: Hx Cerebrovascular Accident, Hx Seizures Renal/ Medical History: Denies: Hx Peritoneal Dialysis Musculoskeltal Medical History: Denies Hx Arthritis - Immunizations Hx Diphtheria, Pertussis, Tetanus Vaccination: Yes Physical Exam - Vital signs Vitals: Temp Pulse Resp BP Pulse Ox 98.1 F 60 24 H 131/86 H 100 11/18/19 18:13 11/18/19 18:13 11/18/19 18:13 11/18/19 18:13 11/18/19 18:13 Course - Vital Signs Vital signs: Temp Pulse Resp BP Pulse Ox 98.1 F 60 24 H 131/86 H 100 11/18/19 18:13 11/18/19 18:13 11/18/19 18:13 11/18/19 18:13 11/18/19 18:13 Doctor's Discharge - Discharge Referrals: ALBERTO GILMAN MD [Primary Care Provider] - Follow up as needed
--- NOTE | 2019-11-18 19:31 | RADIOLOGY REPORT (SQ) ---
EXAM DESCRIPTION: CHEST SINGLE VIEW; SHOULDER RIGHT 2 OR MORE VIEWS IMAGES COMPLETED DATE/TIME: 11/18/2019 7:20 pm REASON FOR STUDY: SOB; shoulder pain COMPARISON: See below. FINDINGS: One view chest: 07/04/2019 comparison. AP portable upright study shows low lung volumes, cardiomegaly and mild central vascular congestion. No pneumothorax for pneumonia detected. Left pac er as before. Three views right shoulder: Irregularity along the lateral humeral head looks like a peripherally sc lerotic chronic nondisplaced fracture. No acute fracture. Degenerative changes in the glenohumeral joint. TECHNICAL DOCUMENTATION: JOB ID: [id number] Reading location - IP/workstation name: [email or web address] OF [email or web address]
--- NOTE | 2019-11-18 19:31 | RADIOLOGY REPORT (SQ) ---
EXAM DESCRIPTION: CHEST SINGLE VIEW; SHOULDER RIGHT 2 OR MORE VIEWS IMAGES COMPLETED DATE/TIME: 11/18/2019 7:20 pm REASON FOR STUDY: SOB; shoulder pain COMPARISON: See below. FINDINGS: One view chest: 07/04/2019 comparison. AP portable upright study shows low lung volumes, cardiomegaly and mild central vascular congestion. No pneumothorax for pneumonia detected. Left pac er as before. Three views right shoulder: Irregularity along the lateral humeral head looks like a peripherally sc lerotic chronic nondisplaced fracture. No acute fracture. Degenerative changes in the glenohumeral joint. TECHNICAL DOCUMENTATION: JOB ID: [id number] Reading location - IP/workstation name: [email or web address]
[2019-11-18 20:02] LABS: ABSOLUTE LYMPHOCYTES (AUTO) 1.6 10^3/uL (0.5-4.7); ABSOLUTE MONOCYTES (AUTO) 0.5 10^3/uL (0.1-1.4); ABSOLUTE NEUT (AUTO) 2.8 10^3/uL (1.7-8.2); BASOPHILS % (AUTO) 0.4 % (0-2); EOSINOPHILS % (AUTO) 0.6 % (0-6); HEMATOCRIT 39.7 % (37.9-51.0); HEMOGLOBIN 13.4 g/dL (13.5-17.0); LYMPHOCYTES % (AUTO) 33.2 % (13-45); MEAN CORPUSCULAR HEMOGLOBIN 33.2 pg (27.0-33.4); MEAN CORPUSCULAR HGB CONC 33.7 g/dL (32.0-36.0); MEAN CORPUSCULAR VOLUME 98 fl (80-97); MONOCYTES % (AUTO) 9.2 % (3-13); PLATELET COUNT 144 10^3/uL (150-450); RED BLOOD COUNT 4.04 10^6/uL (4.35-5.55); RED CELL DISTRIBUTION WIDTH 13.9 % (11.5-14.0); SEGMENTED NEUTROPHILS % (AUTO) 56.6 % (42-78); TOTAL CELLS COUNTED % (AUTO) 100 %; WHITE BLOOD COUNT 4.9 10^3/uL (4.0-10.5)
[2019-11-18 20:09] LABS: INTERNATIONAL RATION (INR) 1.12; PARTIAL THROMBOPLASTIN TIME 32.4 SEC (23.5-35.8); PROTHROMBIN TIME 14.6 SEC (11.4-15.4)
[2019-11-18 20:14] LABS: ALBUMIN 4.2 g/dL (3.5-5.0); ALKALINE PHOSPHATASE 120 U/L (38-126); ANION GAP 6 (5-19); ASPARTATE AMINO TRANSFERASE 44 U/L (17-59); BILIRUBIN,DIRECT 0.5 mg/dL (0.0-0.4); BILIRUBIN,TOTAL 1.8 mg/dL (0.2-1.3); BLOOD UREA NITROGEN 14 mg/dL (7-20); CALCIUM 9.8 mg/dL (8.4-10.2); CARBON DIOXIDE 28 mmol/L (22-30); CHLORIDE 107 mmol/L (98-107); GLUCOSE 89 mg/dL (75-110); POTASSIUM 5.1 mmol/L (3.6-5.0); TOTAL PROTEIN 7.3 g/dL (6.3-8.2)
[2019-11-18 20:25] LABS: TROPONIN I 0.033 ng/mL
--- NOTE | 2019-11-18 21:19 | ER Document Report ---
ED General - General Chief Complaint: Shortness Of Breath Stated Complaint: SHORT OF BREATH,ABDOMINAL PAIN Time Seen by Provider: 11/18/19 18:32 Primary Care Provider: ALBERTO GILMAN MD [Primary Care Provider] - Follow up as needed Mode of Arrival: Ambulatory Information source: Patient Notes: Patient is a 58-year-old male with a history of CHF and pacemaker and presents for shortness of breath the worsened yesterday. Patient reports orthopnea, cough, and chest and abdominal discomfort. He describe his abdominal pain as epigastric and achy in nature and states it is related to his chest discomfort. He has noted swelling to his feet for the past week and states his shoes feel tight. He denies fever, chills, headache, dizziness, nausea, vomiting, diarrhea, constipation and urinary symptoms. Patient has been compliant with his medication which include spironolactone, furosemide, entresto and carvedilol. He was admitted for three weeks in June 2019 for CHF exacerbation. Patient also presents with right shoulder pain that worsened last night. He states his pain is exacerbated with lying down and states he has trouble sleeping due to the pain. He denies any radiating pain as well as numbness and tingling. 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 He has not seen ortho and has not had physical therapy for his shoulder. TRAVEL OUTSIDE OF THE [place] IN LAST 30 DAYS: No - Related Data Allergies/Adverse Reactions: No Known Allergies Allergy (Verified 09/18/12 10:48) Past Medical History - General Information source: Patient - Social History Smoking Status: Never Smoker Frequency of alcohol use: None Drug Abuse: None Family History: Reviewed & Not Pertinent - Past Medical History Cardiac Medical History: Reports: Hx Congestive Heart Failure Denies: Hx Coronary Artery Disease, Hx Heart Attack, Hx Hypertension Pulmonary Medical History: Denies: Hx Asthma, Hx Bronchitis, Hx COPD, Hx Pneumonia Neurological Medical History: Denies: Hx Cerebrovascular Accident, Hx Seizures Renal/ Medical History: Denies: Hx Peritoneal Dialysis Musculoskeletal Medical History: Denies Hx Arthritis - Immunizations Hx Diphtheria, Pertussis, Tetanus Vaccination: Yes Review of Systems - Review of Systems Constitutional: No symptoms reported EENT: No symptoms reported Cardiovascular: See HPI Respiratory: See HPI Gastrointestinal: See HPI Genitourinary: No symptoms reported Male Genitourinary: No symptoms reported Musculoskeletal: See HPI Skin: No symptoms reported Hematologic/Lymphatic: No symptoms reported Neurological/Psychological: No symptoms reported Physical Exam - Vital signs Vitals: Temp Pulse Resp BP Pulse Ox 98.1 F 60 24 H 131/86 H 100 11/18/19 18:13 11/18/19 18:13 11/18/19 18:13 11/18/19 18:13 11/18/19 18:13 - Notes Notes: PHYSICAL EXAMINATION: GENERAL: Well-appearing, well-nourished and in no acute distress. HEAD: Atraumatic, normocephalic. EYES: Pupils equal round and reactive to light, extraocular movements intact, sclera anicteric, conjunctiva are normal. ENT: nares patent, oropharynx clear without exudates. Moist mucous membranes. NECK: Normal range of motion, supple without lymphadenopathy LUNGS: Breath sounds clear to auscultation bilaterally and equal. No wheezes, rales, or rhonchi. HEART: Regular, rate, and rhythm without murmurs ABDOMEN: Soft, nontender, normoactive bowel sounds. No guarding, no rebound. No masses appreciated. EXTREMITIES: 1+ pitting edema to bilateral feet and ankles. Normal range of motion. No cyanosis. No tenderness to his right shoulder. Full ROM and 5/5 strength in all planes of his right shoulder. Negative Neer's and Mcelroy's. NEUROLOGICAL: No focal neurological deficits. Moves all extremities spontaneously and on command. PSYCH: Normal mood, normal affect. SKIN: Warm, Dry, normal turgor, no rashes or lesions noted. Course - Re-evaluation Re-evalutation: Patient with a hx of CHF and presents with SOB, orthopnea, cough, chest and abdominal discomfort that worsened last night. He has 1+ pitting edema in his feet and ankles. He has been complaint with his medication. Pro-BNP is 6500 and chest XR shows vascular congestion. Based on these findings and his presentation, I would like to admit him for CHF exacerbation. Transdermal NTG and Lasix 20mg IV have been started. Discussed admission with patient and he agrees. Will proceed with admission. 11/18/19 22:55 Dr. Fabian accepted the patient for a full admission to the [facility]. He requested transdermal NTG be discontinued and another 20mg of IV Lasix. Patient's right shoulder XR showed an old nondisplaced fracture as well as arthritis to the glenohumeral joint. I discussed this with the patient and recommended follow up with orthopedics. - Vital Signs Vital signs: Temp Pulse Resp BP Pulse Ox 98.1 F 60 20 146/104 H 97 11/18/19 18:13 11/18/19 18:13 11/18/19 22:13 11/18/19 22:13 11/18/19 22:13 - Laboratory Result Diagrams: 11/18/19 19:50 11/18/19 19:50 Laboratory results interpreted by me: 11/18/19 11/18/19 11/18/19 19:50 19:50 19:50 RBC 4.04 L Hgb 13.4 L MCV 98 H Plt Count 144 L Potassium 5.1 H Total Bilirubin 1.8 H Direct Bilirubin 0.5 H NT-Pro-B Natriuret Pep 6500 H - Diagnostic Test Radiology reviewed: Image reviewed - Radiology Report: Findings: One view chest: 07/04/2019 comparison. AP portable upright study shows low lung volumes, cardiomegaly and mild central vascular congestion. No pneumothorax for pneumonia detected. Left pacer as before. Three views right shoulder: Irregularity along the lateral humeral head looks like a peropherally sclerotic chronic nondisplaced fracture. No acute fracture. Degenerative changes in the glenohumeral joint., Reports reviewed - EKG Interpretation by Me Additional EKG results interpreted by me: Ventricular-paced rhythm with a rate of 89. Irregular pacing. No change from prior EKG. Discharge - Discharge Clinical Impression: Shortness of breath, Lower extremity edema Congestive heart failure Qualifiers: Heart failure type: systolic Heart failure chronicity: acute on chronic Qualified Code(s): I50.23 - Acute on chronic systolic (congestive) heart failure Right shoulder pain Qualifiers: Chronicity: chronic Qualified Code(s): M25.511 - Pain in right shoulder; G89.29 - Other chronic pain Condition: Stable Disposition: ADMITTED INPATIENT Admitting Provider: Caren Unit Admitted: IMCU Referrals: ALBERTO GILMAN MD [Primary Care Provider] - Follow up as needed
[2019-11-18] MEDS ORDERED: NITROGLYCERIN 5 MG (0.2 MG/HR) PATCH.TD24 TD ONE (21:24)
[2019-11-18] MEDS ORDERED: FUROSEMIDE INJ/PF 20 MG/2 ML SDV IV ONE ×2 (21:25→22:52)
[2019-11-19] MEDS: PANTOPRAZOLE SODIUM 20 MG TABLET.DR PO SCH (05:58)
[2019-11-19] MEDS: ENOXAPARIN SODIUM INJ 40 MG/0.4 ML DISP.SYRIN SUBCUT SCH (09:32)
--- NOTE | 2019-11-19 13:54 | PDOC H&P ---
History of Present Illness Admission Date/PCP: 11/18/19 23:38 ALBERTO GILMAN MD History of Present Illness: MEHRDAD LANDON is a 58 year old male patient of Dr Gilman who presented to the ED due to worsening difficulty with breathing. Patient reported a day duration of onset with nonproductive coughing, 2 pillow orthopnea, and chest discomfort. He denied definite chest pain and localized his discomfort to mid epigastric region. He described pain as achy and deep seated. He denied any associated palpitation or diaphoresis. No dizziness, vertigo, or headache. He denied any associated nausea, vomiting, constipation or diarrhea. No flank pain, hematuria, dysuria, or frequency. Patient reported worsening shoulder joint region pain that worsen with laying done and disruptive to his sleep over last 2 days. He denied any radiation of pain into his upper extremity. No recent fall, trauma, or instrumentation. His initial ED evaluation was significant for elevated NT-Pro BNP, hyperkalemia and slightly elevated total and direct bilirubin. His radiographic evaluation revealed right shoulder joint with chronic nondisplaced fracture and glenoid degenerative changes. His chest X ray suggested cardiomegaly with vascular congestion. He was advised hospitalization with concern for acute on chronic CHF and shoulder joint pain. His morbidities are as listed below. Past Medical History Cardiac Medical History: Reports: Congestive Heart Failure Denies: Coronary Artery Disease, Myocardial Infarction, Hypertension Pulmonary Medical History: Denies: Asthma, Bronchitis, Chronic Obstructive Pulmonary Disease (COPD), Pneumonia Neurological Medical History: Denies: Seizures Musculoskeltal Medical History: Denies: Arthritis Psychiatric Medical History: Reports: Depression Hematology: Denies: Anemia Social History Smoking Status: Never Smoker Frequency of Alcohol Use: None Hx Recreational Drug Use: No Drugs: None Hx Prescription Drug Abuse: No - Advance Directive Resuscitation Status: Full Code Family History Family History: Reviewed & Not Pertinent Parental Family History Reviewed: Yes Children Family History Reviewed: Yes Sibling(s) Family History Reviewed.: Yes Medication/Allergy Home Medications: Carvedilol [Coreg 12.5 mg Tablet] 12.5 mg PO Q12 #60 tablet 07/06/19 Spironolactone [Aldactone 25 mg Tablet] 25 mg PO DAILY #90 tablet 07/06/19 Furosemide [Lasix 20 mg Tablet] 40 mg PO DAILY 11/19/19 Sacubitril/Valsartan [Entresto 49 mg/51 mg Tablet] 1 tab PO Q12 11/19/19 Allergies/Adverse Reactions: No Known Allergies Allergy (Verified 09/18/12 10:48) Physical Exam Vital Signs: Temp Pulse Resp BP Pulse Ox 97.8 F 79 18 118/63 99 11/19/19 12:29 11/19/19 12:29 11/19/19 12:29 11/19/19 12:29 11/19/19 12:29 Intake & Output 11/18/19 11/19/19 11/20/19 06:59 06:59 06:59 Intake Total 0 Output Total 1780 Balance -1780 Weight 57 kg General appearance: PRESENT: no acute distress, well-developed, well-nourished Head exam: PRESENT: atraumatic, normocephalic Eye exam: PRESENT: conjunctiva pink, EOMI, PERRLA. ABSENT: scleral icterus Ear exam: PRESENT: normal external ear exam Mouth exam: PRESENT: moist, tongue midline Teeth exam: PRESENT: poor dentation Neck exam: PRESENT: full ROM. ABSENT: carotid bruit, JVD, lymphadenopathy, thyromegaly Respiratory exam: PRESENT: clear to auscultation brady, decreased breath sounds - at lung bases Cardiovascular exam: PRESENT: RRR, +S1, +S2. ABSENT: diastolic murmur, rubs, systolic murmur Pulses: PRESENT: normal dorsalis pedis pul, +2 pedal pulses bilateral Vascular exam: PRESENT: normal capillary refill. ABSENT: pallor GI/Abdominal exam: PRESENT: normal bowel sounds, soft, tenderness - epigastric region to deep palpation. ABSENT: distended, guarding, mass, organolmegaly, rebound Rectal exam: PRESENT: deferred Extremities exam: PRESENT: pedal edema - 1+ bilaterally Musculoskeletal exam: PRESENT: deformity - related to multiple joints involvement with arthritis Neurological exam: PRESENT: alert, awake, oriented to person, oriented to place, oriented to time, oriented to situation, CN II-XII grossly intact. ABSENT: motor sensory deficit Psychiatric exam: PRESENT: appropriate affect, normal mood. ABSENT: homicidal ideation, suicidal ideation Skin exam: PRESENT: dry, intact, warm. ABSENT: cyanosis, rash Results Laboratory Results: 11/18/19 19:50 11/18/19 19:50 11/18/19 11/18/19 19:50 19:50 WBC 4.9 RBC 4.04 L Hgb 13.4 L Hct 39.7 MCV 98 H MCH 33.2 MCHC 33.7 RDW 13.9 Plt Count 144 L Seg Neutrophils % 56.6 Sodium 141.3 Potassium 5.1 H Chloride 107 Carbon Dioxide 28 Anion Gap 6 BUN 14 Creatinine 0.64 Est GFR ( Amer) > 60 Glucose 89 Calcium 9.8 Magnesium 2.0 Total Bilirubin 1.8 H AST 44 Alkaline Phosphatase 120 Total Protein 7.3 Albumin 4.2 11/18/19 19:50 Troponin I 0.033 NT-Pro-B Natriuret Pep 6500 H Assessment & Plan - Diagnosis (1) Acute on chronic systolic (congestive) heart failure Is this a current diagnosis for this admission?: Yes Plan: His LVEF was < 20% on echocardiogram that was completed on 07/04/2019. See covering admitting attending physician orders for details about care plan. (2) GERD (gastroesophageal reflux disease) Qualifiers: Esophagitis presence: esophagitis presence not specified Qualified Code(s): K21.9 - Gastro-esophageal reflux disease without esophagitis Is this a current diagnosis for this admission?: Yes Plan: See covering admitting attending physician orders for details about care plan. (3) Right shoulder pain Qualifiers: Chronicity: chronic Qualified Code(s): M25.511 - Pain in right shoulder; G89.29 - Other chronic pain Is this a current diagnosis for this admission?: Yes Plan: See covering admitting attending physician orders for details about care plan. (4) Presence of cardiac pacemaker Is this a current diagnosis for this admission?: Yes Plan: See covering admitting attending physician orders for details about care plan. - Time Time Spent: 50 to 70 Minutes Medications reviewed and adjusted accordingly: Yes Anticipated Discharge Disposition: Home with Home Health Anticipated Discharge Timeframe: within 72 hours - Inpatient Certification Based on my medical assessment, after consideration of the patient's comorbidities, presenting symptoms, or acuity I expect that the services needed warrant INPATIENT care.: Yes I certify that my determination is in accordance with my understanding of Medicare's requirements for reasonable and necessary INPATIENT services [42 CFR 412.3e].: Yes Medical Necessity: Significant Comorbidiites Make Outpatient Treatment Too Risky, Need Close Monitoring Due to Risk of Patient Decompensation, Need For Continuous Telemetry Monitoring, Risk of Complication if Not Cared For in Hospital, Risk of Diagnosis Which Will Require Inpatient Eval/Care/Monitoring Post Hospital Care: D/C [employer] Documentation - Plan Summary Plan Summary: See covering admitting attending physician orders for details about care plan.
[2019-11-19] MEDS: FUROSEMIDE INJ/PF 40 MG/4 ML SDV IV SCH (16:16)
[2019-11-19] MEDS: SACUBITRIL/VALSARTAN 49 MG/51 MG TABLET PO SCH (22:10)
[2019-11-19] MEDS: CARVEDILOL 12.5 MG TABLET PO SCH (22:10)
[2019-11-20 05:12] LABS: HEMOGLOBIN 12.9 g/dL (13.5-17.0); PLATELET COUNT 130 10^3/uL (150-450); TOTAL CELLS COUNTED % (AUTO) 100 %
[2019-11-20 05:27] LABS: ABSOLUTE BASOPHILS # (AUTO) 0.1 10^3/uL (0.0-0.2); ABSOLUTE LYMPHOCYTES (AUTO) 1.8 10^3/uL (0.5-4.7); ABSOLUTE MONOCYTES (AUTO) 0.4 10^3/uL (0.1-1.4); ABSOLUTE NEUT (AUTO) 2.2 10^3/uL (1.7-8.2); BASOPHILS % (AUTO) 1.2 % (0-2); HEMATOCRIT 37.7 % (37.9-51.0); MEAN CORPUSCULAR HEMOGLOBIN 33.2 pg (27.0-33.4); MEAN CORPUSCULAR HGB CONC 34.2 g/dL (32.0-36.0); MEAN CORPUSCULAR VOLUME 97 fl (80-97); MONOCYTES % (AUTO) 9.8 % (3-13); RED BLOOD COUNT 3.88 10^6/uL (4.35-5.55); RED CELL DISTRIBUTION WIDTH 13.6 % (11.5-14.0); WHITE BLOOD COUNT 4.5 10^3/uL (4.0-10.5)
[2019-11-20 05:36] LABS: ALBUMIN 3.4 g/dL (3.5-5.0); ALKALINE PHOSPHATASE 95 U/L (38-126); ANION GAP 10 (5-19); ASPARTATE AMINO TRANSFERASE 35 U/L (17-59); BILIRUBIN,DIRECT 0.4 mg/dL (0.0-0.4); BILIRUBIN,TOTAL 1.8 mg/dL (0.2-1.3); BLOOD UREA NITROGEN 21 mg/dL (7-20); CALCIUM 9.3 mg/dL (8.4-10.2); CARBON DIOXIDE 26 mmol/L (22-30); CHLORIDE 103 mmol/L (98-107); GLUCOSE 136 mg/dL (75-110); POTASSIUM 4.1 mmol/L (3.6-5.0); TOTAL PROTEIN 6.2 g/dL (6.3-8.2)
[2019-11-20] MEDS: PANTOPRAZOLE SODIUM 20 MG TABLET.DR PO SCH (06:25)
--- NOTE | 2019-11-20 08:49 | EKG REPORT ---
SEVERITY:- ABNORMAL ECG - VENTRICULAR-PACED RHYTHM : Confirmed by: Servando Vaughn MD 20-Nov-2019 08:48:30
[2019-11-20] MEDS: CARVEDILOL 12.5 MG TABLET PO SCH ×2 (09:16→21:23)
[2019-11-20] MEDS: SPIRONOLACTONE 25 MG TABLET PO SCH (09:16)
[2019-11-20] MEDS: SACUBITRIL/VALSARTAN 49 MG/51 MG TABLET PO SCH ×2 (09:16→21:23)
[2019-11-20] MEDS: ENOXAPARIN SODIUM INJ 40 MG/0.4 ML DISP.SYRIN SUBCUT SCH (09:16)
[2019-11-20] MEDS: FUROSEMIDE INJ/PF 40 MG/4 ML SDV IV SCH (09:16)
--- NOTE | 2019-11-20 20:39 | PDOC PROGRESS REPORT ---
Subjective Progress Note for:: 11/20/19 Subjective:: Patient was admitted yesterday for the management of acute on chronic systolic heart failure Reason For Visit: CHF EXACERBATION Physical Exam Vital Signs: Temp Pulse Resp BP Pulse Ox 97.6 F 66 16 102/59 L 92 11/20/19 16:23 11/20/19 16:23 11/20/19 16:23 11/20/19 16:23 11/20/19 16:23 Intake & Output 11/19/19 11/20/19 11/21/19 06:59 06:59 06:59 Intake Total 0 1907 935 Output Total 1780 350 Balance -1780 1557 935 Weight 57 kg 56.6 kg General appearance: PRESENT: no acute distress Eye exam: PRESENT: PERRLA Respiratory exam: PRESENT: clear to auscultation brady Cardiovascular exam: PRESENT: +S1, +S2 GI/Abdominal exam: PRESENT: soft Neurological exam: PRESENT: alert Results Laboratory Results: 11/20/19 04:45 11/20/19 04:45 11/20/19 11/20/19 04:45 04:45 WBC 4.5 RBC 3.88 L Hgb 12.9 L Hct 37.7 L MCV 97 MCH 33.2 MCHC 34.2 RDW 13.6 Plt Count 130 L Seg Neutrophils % 48.0 Sodium 138.5 Potassium 4.1 Chloride 103 Carbon Dioxide 26 Anion Gap 10 BUN 21 H Creatinine 0.84 Est GFR ( Amer) > 60 Glucose 136 H Calcium 9.3 Magnesium 1.9 Total Bilirubin 1.8 H AST 35 Alkaline Phosphatase 95 Total Protein 6.2 L Albumin 3.4 L 11/18/19 19:50 Troponin I 0.033 NT-Pro-B Natriuret Pep 6500 H Assessment & Plan - Diagnosis (1) Acute systolic (congestive) heart failure Is this a current diagnosis for this admission?: Yes Plan: Continue treatment - Time Time Spent with patient: 15-24 minutes Level of Care: IMCU Medications reviewed and adjusted accordingly: Yes Anticipated DC Timeframe: within 72 hours
[2019-11-21] MEDS: PANTOPRAZOLE SODIUM 20 MG TABLET.DR PO SCH (06:51)
[2019-11-21] MEDS: CARVEDILOL 12.5 MG TABLET PO SCH (09:13)
[2019-11-21] MEDS: SACUBITRIL/VALSARTAN 49 MG/51 MG TABLET PO SCH (09:13)
[2019-11-21] MEDS: ENOXAPARIN SODIUM INJ 40 MG/0.4 ML DISP.SYRIN SUBCUT SCH (09:18)
[2019-11-21] MEDS: SPIRONOLACTONE 25 MG TABLET PO SCH (09:18)
[2019-11-21] MEDS: FUROSEMIDE INJ/PF 40 MG/4 ML SDV IV SCH (09:19)
[2019-11-21 15:48] VITALS: BP 131/86
--- NOTE | 2019-11-21 17:25 | PDOC DISCHARGE SUMMARY ---
Impression - Admit/DC Date/PCP Admission Date/Primary Care Provider: 11/18/19 23:38 ALBERTO GILMAN MD Discharge Date: 11/21/19 - Discharge Diagnosis (1) Acute systolic (congestive) heart failure Is this a current diagnosis for this admission?: Yes - Additional Information Resuscitation Status: Full Code Discharge Diet: Cardiac Discharge Activity: Activity As Tolerated, Balance Activity w/Rest, Weigh Daily Referrals: ALBERTO GILMAN MD [Primary Care Provider] - 11/28/19 10:20 am Prescriptions: Sacubitril/Valsartan [Entresto 97 mg/103 mg Tablet] 1 tab PO BID #60 tablet Home Medications: Carvedilol [Coreg 12.5 mg Tablet] 12.5 mg PO Q12 #60 tablet 07/06/19 Spironolactone [Aldactone 25 mg Tablet] 25 mg PO DAILY #90 tablet 07/06/19 Furosemide [Lasix 20 mg Tablet] 40 mg PO DAILY 11/19/19 Sacubitril/Valsartan [Entresto 97 mg/103 mg Tablet] 1 tab PO BID #60 tablet 11/21/19 History of Present Illiness History of Present Illness: MEHRDAD LANDON is a 58 year old male patient who presented to the ED due to worsening difficulty with breathing. Patient reported a day duration of onset with nonproductive coughing, 2 pillow orthopnea, and chest discomfort. He denied definite chest pain and localized his discomfort to mid epigastric region. He described pain as achy and deep seated. He denied any associated palpitation or diaphoresis. No dizziness, vertigo, or headache. He denied any associated nausea, vomiting, constipation or diarrhea. No flank pain, hematuria, dysuria, or frequency. Patient reported worsening shoulder joint region pain that worsen with laying done and disruptive to his sleep over last 2 days. He denied any radiation of pain into his upper extremity. No recent fall, trauma, or instrumentation. His initial ED evaluation was significant for elevated NT-Pro BNP, hyperkalemia and slightly elevated total and direct bilirubin. His radiographic evaluation revealed right shoulder joint with chronic nondisplaced fracture and glenoid degenerative changes. His chest X ray suggested cardiomegaly with vascular congestion. He was advised hospitalization with concern for acute on chronic CHF and shoulder joint pain. Hospital Course Hospital Course: Patient presented with acute decompensation of chronic systolic heart failure, he was treated with IV furosemide, he was continue on his regular medication including evidence-based beta-geraldine, Entresto. 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 Patient seen by the bedside ready to be discharged home Physical Exam Vital Signs: Temp Pulse Resp BP Pulse Ox 97.6 F 82 17 131/86 H 90 L 11/21/19 15:46 11/21/19 15:46 11/21/19 15:46 11/21/19 15:46 11/21/19 15:46 Intake & Output 11/20/19 11/21/19 11/22/19 06:59 06:59 06:59 Intake Total 1907 935 Output Total 350 Balance 1557 935 Weight 56.6 kg 56.7 kg General appearance: PRESENT: no acute distress Eye exam: PRESENT: PERRLA Respiratory exam: PRESENT: clear to auscultation brady Cardiovascular exam: PRESENT: +S1, +S2 GI/Abdominal exam: PRESENT: soft Neurological exam: PRESENT: alert, CN II-XII grossly intact Results Laboratory Results: WBC 4.5 10^3/uL (4.0-10.5) 11/20/19 04:45 RBC 3.88 10^6/uL (4.35-5.55) L 11/20/19 04:45 Hgb 12.9 g/dL (13.5-17.0) L 11/20/19 04:45 Hct 37.7 % (37.9-51.0) L 11/20/19 04:45 MCV 97 fl (80-97) 11/20/19 04:45 MCH 33.2 pg (27.0-33.4) 11/20/19 04:45 MCHC 34.2 g/dL (32.0-36.0) 11/20/19 04:45 RDW 13.6 % (11.5-14.0) 11/20/19 04:45 Plt Count 130 10^3/uL (150-450) L 11/20/19 04:45 Lymph % (Auto) 40.0 % (13-45) 11/20/19 04:45 [place] % (Auto) 9.8 % (3-13) 11/20/19 04:45 Eos % (Auto) 1.0 % (0-6) 11/20/19 04:45 Baso % (Auto) 1.2 % (0-2) 11/20/19 04:45 Absolute Neuts (auto) 2.2 10^3/uL (1.7-8.2) 11/20/19 04:45 Absolute Lymphs (auto) 1.8 10^3/uL (0.5-4.7) 11/20/19 04:45 Absolute Monos (auto) 0.4 10^3/uL (0.1-1.4) 11/20/19 04:45 Absolute Eos (auto) 0.0 10^3/uL (0.0-0.6) 11/20/19 04:45 Absolute Basos (auto) 0.1 10^3/uL (0.0-0.2) 11/20/19 04:45 Seg Neutrophils % 48.0 % (42-78) 11/20/19 04:45 PT 14.6 SEC (11.4-15.4) 11/18/19 19:50 INR 1.12 11/18/19 19:50 APTT 32.4 SEC (23.5-35.8) 11/18/19 19:50 Sodium 138.5 mmol/L (137-145) 11/20/19 04:45 Potassium 4.1 mmol/L (3.6-5.0) 11/20/19 04:45 Chloride 103 mmol/L (98-107) 11/20/19 04:45 Carbon Dioxide 26 mmol/L (22-30) 11/20/19 04:45 Anion Gap 10 (5-19) 11/20/19 04:45 BUN 21 mg/dL (7-20) H 11/20/19 04:45 Creatinine 0.84 mg/dL (0.52-1.25) 11/20/19 04:45 Est GFR ( Amer) > 60 (>60) 11/20/19 04:45 Est GFR (MDRD) Non-Af > 60 (>60) 11/20/19 04:45 Glucose 136 mg/dL (75-110) H 11/20/19 04:45 Calcium 9.3 mg/dL (8.4-10.2) 11/20/19 04:45 Magnesium 1.9 mg/dL (1.6-2.3) 11/20/19 04:45 Total Bilirubin 1.8 mg/dL (0.2-1.3) H 11/20/19 04:45 Direct Bilirubin 0.4 mg/dL (0.0-0.4) 11/20/19 04:45 Neonat Total Bilirubin Not Reportable 11/20/19 04:45 Neonat Direct Bilirubin Not Reportable 11/20/19 04:45 Neonat Indirect Bili Not Reportable 11/20/19 04:45 AST 35 U/L (17-59) 11/20/19 04:45 ALT 20 U/L (<50) 11/20/19 04:45 Alkaline Phosphatase 95 U/L (38-126) 11/20/19 04:45 Troponin I 0.033 ng/mL 11/18/19 19:50 NT-Pro-B Natriuret Pep 6500 pg/mL (<125) H 11/18/19 19:50 Total Protein 6.2 g/dL (6.3-8.2) L 11/20/19 04:45 Albumin 3.4 g/dL (3.5-5.0) L 11/20/19 04:45 11/18/19 19:50 Troponin I 0.033 NT-Pro-B Natriuret Pep 6500 H Stroke Is this a Stroke Patient?: No Acute Heart Failure Is this a Heart Failure Patient?: Yes Documentation of LVEF assessment?: Yes LVEF: LVEF Less Than or Equal to 35% Anticoagulant Therapy: N/A Discharged on Evidence-Based Beta Blockers: Yes Discharged on ARNI?: Yes Discharged on ARB?: N/A-Discharged on ARNI Discharged on ACEI?: N/A Discharged on ARNI For LVEF <35%, discharged on Aldosterone Antagonist?: N/A (LVEF > or = 35%) Follow-up Appointment scheduled within 7 days?: Yes
== END 2019-11-21 16:11 | disposition home or self-care (01) | DRG 292 ==
LOC: ER 17:50 → EH 23:38 → 3S 11-19 01:27
PROVIDERS: ADMIT Internal Medicine Geriatric Medicine; ATTEND Internal Medicine
DX: I50.23 Acute on chronic systolic (congestive) heart failure (principal); I42.0 Dilated cardiomyopathy; E87.5 Hyperkalemia; I11.9 Hypertensive heart disease without heart failure; F32.9 Major depressive disorder, single episode, unspecified; M19.90 Unspecified osteoarthritis, unspecified site; K21.9 Gastro-esophageal reflux disease without esophagitis; G89.29 Other chronic pain; M25.511 Pain in right shoulder; Z95.0 Presence of cardiac pacemaker; Z87.81 Personal history of (healed) traumatic fracture
CPT/HCPCS: 36415; 71045; 80053; 83735; 83880; 84484; 85025; 85610; 85730; 93005; 93010; 96374; 96376; 99285; J1650; J1940; J3490

== ENCOUNTER 2020-01-25 13:32 | Inpatient (IN) | payer MEDICAID ==
[2020-01-25 16:11] LABS: ABSOLUTE BASOPHILS # (AUTO) 0.1 10^3/uL (0.0-0.2); ABSOLUTE LYMPHOCYTES (AUTO) 1.5 10^3/uL (0.5-4.7); ABSOLUTE MONOCYTES (AUTO) 0.4 10^3/uL (0.1-1.4); ABSOLUTE NEUT (AUTO) 3.2 10^3/uL (1.7-8.2); BASOPHILS % (AUTO) 1.2 % (0-2); EOSINOPHILS % (AUTO) 0.6 % (0-6); HEMATOCRIT 42.6 % (37.9-51.0); HEMOGLOBIN 14.1 g/dL (13.5-17.0); LYMPHOCYTES % (AUTO) 29.2 % (13-45); MEAN CORPUSCULAR HEMOGLOBIN 32.5 pg (27.0-33.4); MEAN CORPUSCULAR VOLUME 98 fl (80-97); MONOCYTES % (AUTO) 8.1 % (3-13); PLATELET COUNT 156 10^3/uL (150-450); RED BLOOD COUNT 4.33 10^6/uL (4.35-5.55); SEGMENTED NEUTROPHILS % (AUTO) 60.9 % (42-78); TOTAL CELLS COUNTED % (AUTO) 100 %; WHITE BLOOD COUNT 5.3 10^3/uL (4.0-10.5)
[2020-01-25 16:32] LABS: ALBUMIN 4.1 g/dL (3.5-5.0); ALKALINE PHOSPHATASE 128 U/L (38-126); ANION GAP 11 (5-19); ASPARTATE AMINO TRANSFERASE 44 U/L (17-59); BILIRUBIN,DIRECT 0.3 mg/dL (0.0-0.4); BILIRUBIN,TOTAL 2.8 mg/dL (0.2-1.3); BLOOD UREA NITROGEN 19 mg/dL (7-20); CARBON DIOXIDE 27 mmol/L (22-30); CHLORIDE 104 mmol/L (98-107); GLUCOSE 87 mg/dL (75-110); POTASSIUM 4.3 mmol/L (3.6-5.0); TOTAL PROTEIN 7.2 g/dL (6.3-8.2)
[2020-01-25 16:47] LABS: FREE T4 (FREE THYROXINE) 1.5 ng/dL (0.78-2.19)
[2020-01-25 17:01] LABS: THYROID STIMULATING HORMONE 2.13 uIU/mL (0.47-4.68)
[2020-01-25] MEDS: NORMAL SALINE 250 ML with FUROSEMIDE 250 MG IV PRN ×2 (17:15)
--- NOTE | 2020-01-25 17:32 | RADIOLOGY REPORT (SQ) ---
EXAM DESCRIPTION: FOREARM LEFT COMPLETED DATE/TIME: 01/25/2020 3:50 pm REASON FOR STUDY: gouty left arm COMPARISON: None. NUMBER OF VIEWS: Two views. TECHNIQUE: Two radiographic images acquired of the left forearm, including elbow and wrist in at [address] one projection. LIMITATIONS: None. FINDINGS: MINERALIZATION: Normal. BONES: No acute fracture. No worrisome bone lesions. SOFT TISSUES: No obvious swelling or foreign body. Vascular calcifications. OTHER: No other significant finding. IMPRESSION: No radiographic abnormality of the left forearm. TECHNICAL DOCUMENTATION: JOB ID: [id number] 2010 [employer]- All Rights Reserved Reading location - IP/workstation name: [email or web address]
[2020-01-25] MEDS: PREDNISONE 20 MG TABLET PO SCH (17:50)
[2020-01-25] MEDS: SPIRONOLACTONE 25 MG TABLET PO SCH (17:51)
[2020-01-25] MEDS: CARVEDILOL 12.5 MG TABLET PO SCH ×2 (17:53→21:54)
--- NOTE | 2020-01-25 20:02 | RADIOLOGY REPORT (SQ) ---
EXAM DESCRIPTION: CHEST 2 VIEWS IMAGES COMPLETED DATE/TIME: 01/25/2020 7:54 pm REASON FOR STUDY: chf COMPARISON: 11/18/2019 EXAM PARAMETERS: NUMBER OF VIEWS: two views TECHNIQUE: Digital Frontal and Lateral radiographic views of the chest acquired. RADIATION DOSE: NA LIMITATIONS: none FINDINGS: LUNGS AND PLEURA: No opacities, masses or pneumothorax. No pleural effusion. MEDIASTINUM AND HILAR STRUCTURES: No masses or contour abnormalities. HEART AND VASCULAR STRUCTURES: Cardiomegaly. No pulmonary edema. BONES: No acute findings. HARDWARE: Pacemaker. OTHER: No other significant finding. IMPRESSION: Cardiomegaly without pulmonary edema. TECHNICAL DOCUMENTATION: JOB ID: [id number] 2010 [employer]- All Rights Reserved Reading location - IP/workstation name: [email or web address]
--- NOTE | 2020-01-25 21:09 | PDOC H&P ---
History of Present Illness Admission Date/PCP: 01/25/20 13:32 ALBERTO GILMAN MD History of Present Illness: MEHRDAD LANDON is a 59 year old male,He came to the office today for eval uation of shortness of breath, swelling and redness of the left wrist. He has a history of chronic systolic heart failure more patient is medically optimized, status post AICD pacemaker placement. He has orthopnea, PND and cough. Patient is admitted to be treated for decompensated chronic systolic heart failure. Past Medical History Cardiac Medical History: Reports: Other - Chronic systolic and diastolic heart failure Musculoskeltal Medical History: Denies: Arthritis Psychiatric Medical History: Reports: Depression Social History Smoking Status: Current Some Day Smoker Cigarettes Packs Per Day: 0.5 Frequency of Alcohol Use: None Hx Recreational Drug Use: No Drugs: None Hx Prescription Drug Abuse: No Family History Family History: Reviewed & Not Pertinent Parental Family History Reviewed: Yes Children Family History Reviewed: Yes Sibling(s) Family History Reviewed.: Yes Medication/Allergy Home Medications: Carvedilol [Coreg 12.5 mg Tablet] 12.5 mg PO Q12 #60 tablet 07/06/19 Spironolactone [Aldactone 25 mg Tablet] 25 mg PO DAILY #90 tablet 07/06/19 Furosemide [Lasix 20 mg Tablet] 40 mg PO DAILY 11/19/19 Sacubitril/Valsartan [Entresto 97 mg/103 mg Tablet] 1 tab PO BID #60 tablet 11/21/19 Allergies/Adverse Reactions: No Known Allergies Allergy (Verified 09/18/12 10:48) Review of Systems Constitutional: ABSENT: chills, fever(s), headache(s), weight gain, weight loss Eyes: ABSENT: visual disturbances Ears: ABSENT: hearing changes Cardiovascular: PRESENT: dyspnea on exertion, orthropnea Respiratory: ABSENT: cough, hemoptysis Gastrointestinal: ABSENT: abdominal pain, constipation, diarrhea, hematemesis, hematochezia, nausea, vomiting Genitourinary: ABSENT: dysuria, hematuria Musculoskeletal: ABSENT: joint swelling Integumentary: ABSENT: rash, wounds Neurological: ABSENT: abnormal gait, abnormal speech, confusion, dizziness, focal weakness, syncope Psychiatric: ABSENT: anxiety, depression, homidical ideation, suicidal ideation Endocrine: ABSENT: cold intolerance, heat intolerance, menstrual abnormalities, polydipsia, polyuria Hematologic/Lymphatic: ABSENT: easy bleeding, easy bruising, lymphadenopathy Physical Exam Vital Signs: Temp Pulse Resp BP Pulse Ox 97.7 F 53 L 24 H 117/75 96 01/25/20 20:20 01/25/20 20:20 01/25/20 20:20 01/25/20 20:20 01/25/20 20:20 Intake & Output 01/24/20 01/25/20 01/26/20 06:59 06:59 06:59 Weight 57.8 kg General appearance: PRESENT: mild distress Head exam: PRESENT: atraumatic, normocephalic Eye exam: PRESENT: PERRLA Ear exam: PRESENT: normal external ear exam Neck exam: PRESENT: full ROM Respiratory exam: PRESENT: rales Cardiovascular exam: PRESENT: RRR, +S1, +S2 Vascular exam: PRESENT: normal capillary refill GI/Abdominal exam: PRESENT: normal bowel sounds, soft Rectal exam: PRESENT: deferred Neurological exam: PRESENT: alert, CN II-XII grossly intact Psychiatric exam: PRESENT: appropriate affect, normal mood Skin exam: PRESENT: dry, intact, warm Results Laboratory Results: 01/25/20 15:55 01/25/20 15:55 01/25/20 01/25/20 01/25/20 15:55 15:55 15:55 WBC 5.3 RBC 4.33 L Hgb 14.1 Hct 42.6 MCV 98 H MCH 32.5 MCHC 33.0 RDW 14.0 Plt Count 156 Seg Neutrophils % 60.9 Sodium 142.0 Potassium 4.3 Chloride 104 Carbon Dioxide 27 Anion Gap 11 BUN 19 Creatinine 0.74 Est GFR ( Amer) > 60 Glucose 87 Uric Acid 7.0 Calcium 10.0 Total Bilirubin 2.8 H AST 44 Alkaline Phosphatase 128 H Total Protein 7.2 Albumin 4.1 TSH 2.13 Free T4 1.50 Impressions: Chest X-Ray 01/25/20 00:00 IMPRESSION: Cardiomegaly without pulmonary edema. Forearm X-Ray 01/25/20 15:22 IMPRESSION: No radiographic abnormality of the left forearm. Assessment & Plan - Diagnosis (1) Acute on chronic systolic (congestive) heart failure Is this a current diagnosis for this admission?: Yes Plan: Patient is admitted to be treated with furosemide infusion, continue Entresto, carvedilol (2) Acute gouty arthropathy Is this a current diagnosis for this admission?: Yes Plan: He has acute gout, start prednisone - Time Time Spent: Greater than 70 Minutes Smoking Cessation Education: 3 to 10 minutes Medications reviewed and adjusted accordingly: Yes Anticipated Discharge Disposition: Home, Self Care Anticipated Discharge Timeframe: within 72 hours - Inpatient Certification Based on my medical assessment, after consideration of the patient's comorbidities, presenting symptoms, or acuity I expect that the services needed warrant INPATIENT care.: Yes I certify that my determination is in accordance with my understanding of Medicare's requirements for reasonable and necessary INPATIENT services [42 CFR 412.3e].: Yes
[2020-01-25] MEDS: SACUBITRIL/VALSARTAN 97 MG/103 MG TABLET PO SCH (21:54)
[2020-01-25] MEDS: ENOXAPARIN SODIUM INJ 40 MG/0.4 ML DISP.SYRIN SUBCUT SCH (23:37)
[2020-01-26] MEDS ORDERED: INFLUENZA QUAD (6MOS+) 2020-21 VAC 0.5 ML SYR IM ONE (08:00)
[2020-01-26] MEDS: NORMAL SALINE 250 ML with FUROSEMIDE 250 MG IV PRN ×2 (08:19)
[2020-01-26 09:25] LABS: APPEARANCE,URINE CLEAR; BILIRUBIN,URINE NEGATIVE (NEGATIVE); COLOR,URINE STRAW; GLUCOSE, URINE NEGATIVE (NEGATIVE); KETONES,URINE NEGATIVE (NEGATIVE); LEUKOCYTE ESTERASE,URINE NEGATIVE (NEGATIVE); NITRITE,URINE NEGATIVE (NEGATIVE); PROTEIN,URINE NEGATIVE (NEGATIVE); URINE SPECIFIC GRAVITY 1.008; UROBILINOGEN,URINE NEGATIVE mg/dL (<2.0)
[2020-01-26] MEDS: CARVEDILOL 12.5 MG TABLET PO SCH ×2 (09:43→22:13)
[2020-01-26] MEDS: PREDNISONE 20 MG TABLET PO SCH (09:43)
[2020-01-26] MEDS: SPIRONOLACTONE 25 MG TABLET PO SCH (09:43)
[2020-01-26] MEDS: ENOXAPARIN SODIUM INJ 40 MG/0.4 ML DISP.SYRIN SUBCUT SCH (09:43)
[2020-01-26] MEDS: SACUBITRIL/VALSARTAN 97 MG/103 MG TABLET PO SCH ×2 (09:43→22:13)
--- NOTE | 2020-01-26 13:24 | PDOC PROGRESS REPORT ---
Subjective Date:: 01/26/20 Subjective:: Patient seen by the bedside, the blood pressure is low, he was admitted yesterda y for the management of acute systolic heart failure, initiated furosemide infusion, DC Lasix Reason For Visit: ACUTE SYSTOLIC HEART FAILURE,GOUTY ARTHROPATHY Physical Exam Vital Signs: Temp Pulse Resp BP Pulse Ox 97.8 F 84 17 96/71 L 96 01/26/20 11:19 01/26/20 11:19 01/26/20 11:19 01/26/20 11:19 01/26/20 11:19 Intake & Output 01/25/20 01/26/20 01/27/20 06:59 06:59 06:59 Intake Total 450 28 Output Total 2125 Balance -1675 28 Weight 58 kg General appearance: PRESENT: no acute distress Eye exam: PRESENT: PERRLA Respiratory exam: PRESENT: clear to auscultation brady Cardiovascular exam: PRESENT: +S1, +S2 GI/Abdominal exam: PRESENT: soft Neurological exam: PRESENT: alert, CN II-XII grossly intact Results Laboratory Results: 01/25/20 15:55 01/25/20 15:55 01/25/20 01/25/20 01/25/20 15:55 15:55 15:55 WBC 5.3 RBC 4.33 L Hgb 14.1 Hct 42.6 MCV 98 H MCH 32.5 MCHC 33.0 RDW 14.0 Plt Count 156 Seg Neutrophils % 60.9 Sodium 142.0 Potassium 4.3 Chloride 104 Carbon Dioxide 27 Anion Gap 11 BUN 19 Creatinine 0.74 Est GFR ( Amer) > 60 Glucose 87 Uric Acid 7.0 Calcium 10.0 Total Bilirubin 2.8 H AST 44 Alkaline Phosphatase 128 H Total Protein 7.2 Albumin 4.1 TSH 2.13 Free T4 1.50 Urine Color Urine Appearance Urine pH Ur Specific [place] Urine Protein Urine Glucose (UA) Urine Ketones Urine Blood Urine Nitrite Ur Leukocyte Esterase Urine WBC (Auto) Urine RBC (Auto) 01/26/20 05:56 WBC RBC Hgb Hct MCV MCH MCHC RDW Plt Count Seg Neutrophils % Sodium Potassium Chloride Carbon Dioxide Anion Gap BUN Creatinine Est GFR ( Amer) Glucose Uric Acid Calcium Total Bilirubin AST Alkaline Phosphatase Total Protein Albumin TSH Free T4 Urine Color STRAW Urine Appearance CLEAR Urine pH 5.0 Ur Specific [place] 1.008 Urine Protein NEGATIVE Urine Glucose (UA) NEGATIVE Urine Ketones NEGATIVE Urine Blood MODERATE H Urine Nitrite NEGATIVE Ur Leukocyte Esterase NEGATIVE Urine WBC (Auto) 0 Urine RBC (Auto) 1 Impressions: Chest X-Ray 01/25/20 00:00 IMPRESSION: Cardiomegaly without pulmonary edema. Forearm X-Ray 01/25/20 15:22 IMPRESSION: No radiographic abnormality of the left forearm. Assessment & Plan - Diagnosis (1) Acute on chronic systolic (congestive) heart failure Is this a current diagnosis for this admission?: Yes Plan: Discontinue furosemide infusion (2) Acute gouty arthropathy Is this a current diagnosis for this admission?: Yes Plan: Improvement of acute gout, continue prednisone - Time Time Spent with patient: 25-34 minutes Level of Care: IMCU Medications reviewed and adjusted accordingly: Yes Anticipated discharge: Home Anticipated DC Timeframe: within 24 hours
[2020-01-27] MEDS: CARVEDILOL 12.5 MG TABLET PO SCH (09:05)
[2020-01-27] MEDS: ENOXAPARIN SODIUM INJ 40 MG/0.4 ML DISP.SYRIN SUBCUT SCH (09:05)
[2020-01-27] MEDS: SPIRONOLACTONE 25 MG TABLET PO SCH (09:05)
[2020-01-27] MEDS: PREDNISONE 20 MG TABLET PO SCH (09:05)
[2020-01-27] MEDS: SACUBITRIL/VALSARTAN 97 MG/103 MG TABLET PO SCH (09:05)
[2020-01-27 11:15] VITALS: BP 129/65
--- NOTE | 2020-01-27 13:14 | PDOC DISCHARGE SUMMARY ---
Impression - Admit/DC Date/PCP Admission Date/Primary Care Provider: 01/25/20 13:32 ALBERTO GILMAN MD Discharge Date: 01/27/20 - Discharge Diagnosis (1) Acute on chronic systolic (congestive) heart failure Is this a current diagnosis for this admission?: Yes (2) Acute gouty arthropathy Is this a current diagnosis for this admission?: Yes - Additional Information Discharge Diet: Cardiac Discharge Activity: Activity As Tolerated, Balance Activity w/Rest, Weigh Daily Referrals: ALBERTO GILMAN MD [Primary Care Provider] - 02/05/20 10:30 am Prescriptions: Prednisone [Deltasone 20 mg Tablet] 40 mg PO DAILY #5 tablet Home Medications: Carvedilol [Coreg 12.5 mg Tablet] 12.5 mg PO Q12 #60 tablet 07/06/19 Spironolactone [Aldactone 25 mg Tablet] 25 mg PO DAILY #90 tablet 07/06/19 Furosemide [Lasix 20 mg Tablet] 40 mg PO DAILY 11/19/19 Sacubitril/Valsartan [Entresto 97 mg/103 mg Tablet] 1 tab PO BID #60 tablet 11/21/19 Prednisone [Deltasone 20 mg Tablet] 40 mg PO DAILY #5 tablet 01/27/20 History of Present Illiness History of Present Illness: MEHRDAD LANDON is a 59 year old male,He came to the office today for evaluation of shortness of breath, swelling and redness of the left wrist. He has a history of chronic systolic heart failure more patient is medically optimized, status post AICD pacemaker placement. He has orthopnea, PND and cough. Patient is admitted to be treated for decompensated chronic systolic heart failure. Hospital Course Hospital Course: Patient was admitted for the management of acute decompensated chronic systolic heart failure, he was treated with furosemide infusion, he diuresed very well. He was continued on Entresto, beta-geraldine, he has a history of nonischemic dilated cardiomyopathy with a baseline ejection fraction, about 30%. He also has acute gout of the right wrist this was treated effectively with prednisone. Physical Exam Vital Signs: Temp Pulse Resp BP Pulse Ox 98.1 F 80 18 129/65 H 99 01/27/20 12:42 01/27/20 12:42 01/27/20 12:42 01/27/20 11:05 01/27/20 12:42 Intake & Output 01/26/20 01/27/20 01/28/20 06:59 06:59 06:59 Intake Total 450 1214 360 Output Total 8674 960 Balance -1677 254 360 Weight 58 kg 57 kg General appearance: PRESENT: no acute distress Eye exam: PRESENT: PERRLA Respiratory exam: PRESENT: clear to auscultation brady Cardiovascular exam: PRESENT: +S1, +S2 GI/Abdominal exam: PRESENT: soft Neurological exam: PRESENT: alert, CN II-XII grossly intact Results Laboratory Results: WBC 5.3 10^3/uL (4.0-10.5) 01/25/20 15:55 RBC 4.33 10^6/uL (4.35-5.55) L 01/25/20 15:55 Hgb 14.1 g/dL (13.5-17.0) 01/25/20 15:55 Hct 42.6 % (37.9-51.0) 01/25/20 15:55 MCV 98 fl (80-97) H 01/25/20 15:55 MCH 32.5 pg (27.0-33.4) 01/25/20 15:55 MCHC 33.0 g/dL (32.0-36.0) 01/25/20 15:55 RDW 14.0 % (11.5-14.0) 01/25/20 15:55 Plt Count 156 10^3/uL (150-450) 01/25/20 15:55 Lymph % (Auto) 29.2 % (13-45) 01/25/20 15:55 [place] % (Auto) 8.1 % (3-13) 01/25/20 15:55 Eos % (Auto) 0.6 % (0-6) 01/25/20 15:55 Baso % (Auto) 1.2 % (0-2) 01/25/20 15:55 Absolute Neuts (auto) 3.2 10^3/uL (1.7-8.2) 01/25/20 15:55 Absolute Lymphs (auto) 1.5 10^3/uL (0.5-4.7) 01/25/20 15:55 Absolute Monos (auto) 0.4 10^3/uL (0.1-1.4) 01/25/20 15:55 Absolute Eos (auto) 0.0 10^3/uL (0.0-0.6) 01/25/20 15:55 Absolute Basos (auto) 0.1 10^3/uL (0.0-0.2) 01/25/20 15:55 Seg Neutrophils % 60.9 % (42-78) 01/25/20 15:55 Sodium 142.0 mmol/L (137-145) 01/25/20 15:55 Potassium 4.3 mmol/L (3.6-5.0) 01/25/20 15:55 Chloride 104 mmol/L (98-107) 01/25/20 15:55 Carbon Dioxide 27 mmol/L (22-30) 01/25/20 15:55 Anion Gap 11 (5-19) 01/25/20 15:55 BUN 19 mg/dL (7-20) 01/25/20 15:55 Creatinine 0.74 mg/dL (0.52-1.25) 01/25/20 15:55 Est GFR ( Amer) > 60 (>60) 01/25/20 15:55 Est GFR (MDRD) Non-Af > 60 (>60) 01/25/20 15:55 Glucose 87 mg/dL (75-110) 01/25/20 15:55 Uric Acid 7.0 mg/dL (3.5-8.5) 01/25/20 15:55 Calcium 10.0 mg/dL (8.4-10.2) 01/25/20 15:55 Total Bilirubin 2.8 mg/dL (0.2-1.3) H 01/25/20 15:55 Direct Bilirubin 0.3 mg/dL (0.0-0.4) 01/25/20 15:55 Neonat Total Bilirubin Not Reportable 01/25/20 15:55 Neonat Direct Bilirubin Not Reportable 01/25/20 15:55 Neonat Indirect Bili Not Reportable 01/25/20 15:55 AST 44 U/L (17-59) 01/25/20 15:55 ALT 28 U/L (<50) 01/25/20 15:55 Alkaline Phosphatase 128 U/L (38-126) H 01/25/20 15:55 B-Natriuretic Peptide Cancelled 01/25/20 15:55 Total Protein 7.2 g/dL (6.3-8.2) 01/25/20 15:55 Albumin 4.1 g/dL (3.5-5.0) 01/25/20 15:55 TSH 2.13 uIU/mL (0.47-4.68) 01/25/20 15:55 Free T4 1.50 ng/dL (0.78-2.19) 01/25/20 15:55 Urine Color STRAW 01/26/20 05:56 Urine Appearance CLEAR 01/26/20 05:56 Urine pH 5.0 (5.0-9.0) 01/26/20 05:56 Ur Specific [place] 1.008 01/26/20 05:56 Urine Protein NEGATIVE mg/dL (NEGATIVE) 01/26/20 05:56 Urine Glucose (UA) NEGATIVE mg/dL (NEGATIVE) 01/26/20 05:56 Urine Ketones NEGATIVE mg/dL (NEGATIVE) 01/26/20 05:56 Urine Blood MODERATE (NEGATIVE) H 01/26/20 05:56 Urine Nitrite NEGATIVE (NEGATIVE) 01/26/20 05:56 Urine Bilirubin NEGATIVE (NEGATIVE) 01/26/20 05:56 Urine Urobilinogen NEGATIVE mg/dL (<2.0) 01/26/20 05:56 Ur Leukocyte Esterase NEGATIVE (NEGATIVE) 01/26/20 05:56 Urine WBC (Auto) 0 /HPF 01/26/20 05:56 Urine RBC (Auto) 1 /HPF 01/26/20 05:56 U Hyaline Cast (Auto) 6 /LPF 01/26/20 05:56 Urine Mucus (Auto) RARE /LPF 01/26/20 05:56 Urine Ascorbic Acid NEGATIVE (NEGATIVE) 01/26/20 05:56 Impressions: Chest X-Ray 01/25/20 00:00 IMPRESSION: Cardiomegaly without pulmonary edema. Forearm X-Ray 01/25/20 15:22 IMPRESSION: No radiographic abnormality of the left forearm. Stroke Is this a Stroke Patient?: No Acute Heart Failure Is this a Heart Failure Patient?: Yes Documentation of LVEF assessment?: Yes LVEF: LVEF Less Than or Equal to 35% Anticoagulant Therapy: N/A Discharged on Evidence-Based Beta Blockers: Yes Discharged on ARNI?: Yes Discharged on ARB?: N/A-Discharged on ARNI Discharged on ACEI?: N/A Discharged on ARNI For LVEF <35%, discharged on Aldosterone Antagonist?: Yes Follow-up Appointment scheduled within 7 days?: Yes
== END 2020-01-27 12:55 | disposition home or self-care (01) | DRG 292 ==
LOC: 3W 13:32
PROVIDERS: ADMIT Internal Medicine; ATTEND Internal Medicine
DX: I50.23 Acute on chronic systolic (congestive) heart failure (principal); I42.0 Dilated cardiomyopathy; F17.210 Nicotine dependence, cigarettes, uncomplicated; F32.9 Major depressive disorder, single episode, unspecified; M10.9 Gout, unspecified; Z95.810 Presence of automatic (implantable) cardiac defibrillator; Z23 Encounter for immunization
CPT/HCPCS: 36415; 71046; 80053; 81001; 83880; 84439; 84443; 84550; 85025; 90471; 90686; G0008; J1650; J1940; J3490; J7050; J7512